=== PATIENT | female | born 1960 | race Two or more races ===

== ENCOUNTER 2025-05-24 09:11 | Emergency (ER) | payer OTHER, MEDICAID ==
[~2025-05-24] VITALS: Ht 167.6 cm; Wt 75.0 kg
--- NOTE | 2025-05-24 09:27 | ED.PDOC ---
SOB-HPI HPI Comments 65 year old female with PMHx COPD presents to the D with a chief compliant of shortness of breath onset today (05/24/25). Patient states she was seen at [facility] about 2 weeks ago, was treated for COPD exacerbation, prescribed prednisone and antibiotics. Patient states she woke up this morning experiencing shortness of breath, is on 1L O2, increased to 1.5 L, walked to the restroom, noticed HR was elevated, called 911. Patient states symptoms are similar as 2 weeks ago. She had breathing treatment prior to EMS arrival, was given breathing treatment by EMS in route to ED. Denies chills, nausea, vomiting, diarrhea, headache, dizziness, chest pain, blurred vision, hematemesis, dysuria, hematuria. No other symptoms or modifying factors present at this time. Chief Complaint: Shortness of Breath Time Seen by MD: 09:20 Reviewed notes: Medications, Allergies Information Source: Patient, Emergency Med Personnel Mode of Arrival: EMS Severity: Moderate Timing: Hours Duration: Since onset Context: At Rest PE Risk Factors: None History of: COPD Prehospital treatment: Breathing Tx, Oxygen Modifying Factors: Nothing Past Medical History PAST MEDICAL HISTORY: COPD Surgical History: Denies all surgeries RHIC SYSTEMS SAFETY ENGINEER History: No Pertinent RHIC SYSTEMS SAFETY ENGINEER History Family History Family History: Reviewed,noncontributory to illness, No family hx of Cancer, No family hx of DM, No family hx of Heart khari, No family hx of HTN, No family hx ofKidney khari, No family hx of Liver khari, No family hx of Lung khari, No family hx of Stroke Social History Smoker: Non-Smoker Alcohol: Denies ETOH Use Drugs: Denies Drug Use Lives In: Home Constitutional: denies: chills, diaphoresis, fatigue, fever, malaise, sweats, weakness, others EENTM: denies: blurred vision, double vision, ear bleeding, ear discharge, ear drainage, ear pain, ear ringing, eye pain, eye redness, hearing loss, mouth pain, mouth swelling, nasal discharge, nose bleeding, nose congestion, nose pain, photophobia, tearing, throat pain, throat swelling, voice changes, others Respiratory: reports: shortness of breath; denies: cough, hemoptysis, orthopnea, SOB at rest, SOB with excertion, stridor, wheezing, others Cardiovascular: denies: chest pain, dizzy spells, diaphoresis, Dyspnea on exertion, edema, irregular heart beat, left arm pain, lightheadedness, palpitations, PND, syncope, others Gastrointestinal: denies: abdomen distended, abdominal pain, blood streaked bowels, constipated, diarrhea, dysphagia, difficulty swallowing, hematemesis, melena, nausea, poor appetite, poor fluid intake, rectal bleeding, rectal pain, vomiting, others Genitourinary: denies: abnormal vagina bleeding, burning, dyspareunia, dysuria, flank pain, frequency, hematuria, incontinence, pain, , vagina discharge, urgency, others Neurological: denies: dizziness, fainting, headache, left sided numbness, left sided weakness, numbness, paresthesia, pre-existing deficit, right sided numbness, right sided weakness, seizure, speech problems, tingling, tremors, weakness, others Musculoskeletal: denies: back pain, gout, joint pain, joint swelling, muscle pain, muscle stiffness, neck pain, others Integumetry: denies: bruises, change in color, change in hair/nails, dryness, laceration, lesions, lumps, rash, wounds, others Allergic/Immunocompromised: denies: Difficulty Healing, Frequent Infections, Hives, Itching, others Hematologic/Lymphatic: denies: anemia, blood clots, easy bleeding, easy bruising, swollen glands, others Endocrine: denies: excessive hunger, excessive sweating, excessive thirst, excessive urination, flushing, intolerance to cold, intolerance to heat, unexplained weight gain, unexplained weight loss, others Psychiatric: denies: anxiety, bipolar disorder, depression, hopeless, panic disorder, schizophrenia, sleepless, suicidal, others All Other Systems: Reviewed and Negative Physical Exam General Appearance: Normal HEENT: Normal ENT Inspection, Pharynx Normal, TMs Normal Neck: Full Range of Motion, Non-Tender, Normal, Normal Inspection Respiratory: Chest Non-Tender, No Accessory Muscle Use Cardiovascular: No Edema, No JVD, No Murmur, No Gallop, Normal Peripheral Pulses, Regular Rate/Rhythm Breast Exam: Deferred Gastrointestinal: No Organomegaly, Non Tender, No Pulsatile Mass, Normal Bowel Sounds, Soft Genitalia: Deferred Pelvic: Deferred Rectal: Deferred Extremities: No calf tenderness, Normal capillary refill, Normal inspection, Normal range of motion, Non-tender, No pedal edema Musculoskeletal : Apperance: Normal Neurologic: Alert, unit coordinator II-XII nml as Tested, No Motor Deficits, Normal Affect, Normal Mood, No Sensory Deficits Cerebellar Function: Normal Reflexes: Normal Skin: Dry, Normal Color, Warm Lymphatic: No Adenopathy Was a procedure done? Was a procedure done?: No Differential Dx Differential Diagnosis: Bronchitis, COPD, Pneumonia, URI X-Ray, Labs, Meds, VS Vital Signs Date Time Temp Pulse Resp B/P (MAP) Pulse Ox O2 Delivery O2 Flow Rate FiO2 05/24/25 13:08 98.3 89 22 152/107 (122) 95 98.3 05/24/25 09:53 20 95 Nasal Cannula* 3 32 05/24/25 09:21 91 Nasal Cannula* 2 28 05/24/25 09:21 99.0 109 26 120/73 91 99.0 05/24/25 09:17 116 Lab Test 05/24/25 10:59 05/24/25 10:19 Range/Units Troponin I High Sensitivity < 3 L < 3 L </=34 ng/L White Blood Count 10.3 4.4-10.8 10^3/uL Red Blood Count 4.65 4.0-5.20 10^6/uL Hemoglobin 14.7 12.2-16.2 g/dL Hematocrit 42.6 36.0-46.0 % Mean Corpuscular Volume 91.7 80.0-100.0 fL Mean Corpuscular Hemoglobin 31.6 28.0-32.0 pg Mean Corpuscular Hemoglobin Concent 34.4 32.0-36.0 g/dL Red Cell Distribution Width 13.3 11.8-14.3 % Platelet Count 282 140-450 10^3/uL Mean Platelet Volume 7.5 6.9-10.8 fL Neutrophils (%) (Auto) 85.8 H 37.0-80.0 % Lymphocytes (%) (Auto) 8.2 L 10.0-50.0 % Monocytes (%) (Auto) 3.9 0.0-12.0 % Eosinophils (%) (Auto) 1.5 0.0-7.0 % Basophils (%) (Auto) 0.6 0.0-2.0 % Neutrophils # (Auto) 8.8 H 1.6-8.6 10 ^3/uL Lymphocytes # (Auto) 0.8 0.4-5.4 10 ^3/uL Monocytes # (Auto) 0.4 0-1.3 10 ^3/uL Eosinophils # (Auto) 0.2 0-0.8 10 ^3/uL Basophils # (Auto) 0.1 0-0.2 10 ^3/uL Nucleated Red Blood Cells 0.0 % Sodium Level 136 136-145 mmol/L Potassium Level 3.8 3.5-5.1 mmol/L Chloride Level 102 98-107 mmol/L Carbon Dioxide Level 21 20-31 mmol/L Anion Gap 13 5-15 Blood Urea Nitrogen 11 9-23 mg/dL Creatinine 0.85 0.550-1.02 mg/dL Glomerular Filtration Rate Calc 77 >90 mL/min BUN/Creatinine Ratio 12.9 10.0-20.0 Serum Glucose 178 H 74-106 mg/dL Calcium Level 9.3 8.7-10.4 mg/dL B-Type Natriuretic Peptide 17.67 0-100 pg/mL Current Medications Medications (Trade) Dose Ordered Sig/Gisele Route Start Time Stop Time Status Last Admin Azithromycin (Zithromax Tablet) 500 mg ONCE ONCE PO 05/24/25 09:30 05/24/25 09:31 DC 05/24/25 10:19 Albuterol (Ventolin Medneb) 5 mg ONCE ONCE NEB 05/24/25 09:30 05/24/25 09:31 DC 05/24/25 09:52 Ipratropium [place] (Atrovent Medneb) 0.5 mg ONCE ONCE NEB 05/24/25 09:30 05/24/25 09:31 DC 05/24/25 09:52 Methylprednisolone Sodium Succinate (Solu Medrol) 62.5 mg ONCE ONCE IV 05/24/25 09:30 05/24/25 09:31 DC 05/24/25 10:[address] [address] Ph: [phone] DIAGNOSTIC IMAGING Diagnostic Imaging Report : [id number] Signed PATIENT: DASIA SIGALA LACCT: [id number] UNIT: [id number] : 1960 LOC: ER ROOM / BED: / AGE / SEX: 65 / F ADM STATUS: REG ER SERVICE 1 ORDERING PHYSICIAN: CEHTNA JACKSON MD PROCEDURE(s): CXRP - CHEST PORTABLE REASON: sob ORDER NUMBER(s): [id number], ACCESSION NUMBER(s): [id number] EXAM: XY CHEST PORTABLE Indication: sob Technique: Single frontal view of the chest was obtained Comparison: None FINDINGS: Lines and Tubes: None Lungs: No focal consolidation. Pleura: No effusion. No pneumothorax. Cardiomediastinal contours: Unremarkable. Atherosclerotic vascular calcifications of the thoracic aorta are noted. Bones: No acute osseous abnormality. IMPRESSION: No acute cardiopulmonary disease. ATED BY: LIZZETTE AMARO MD DICTATED DATE/TIME: 05/24/251004 SIGNED BY: LIZZETTE AMARO MD SIGNED DATE/TIME: 05/24/251004 CC: Time of 1ST Reevaluation: 09:50 Reevaluation 1ST: Unchanged Patient Education/Counseling: Diagnosis, Treatment, Prognosis Family Education/Counseling: No Family Present SEPSIS Sepsis Screen Physician Orders Chest Portable (05/24/25 09:22) Troponin-I Hs (05/24/25 12:22) Vital Signs Date Time Temp Pulse Resp B/P (MAP) Pulse Ox O2 Delivery O2 Flow Rate FiO2 05/24/25 13:08 98.3 89 22 152/107 (122) 95 98.3 05/24/25 09:53 20 95 Nasal Cannula* 3 32 05/24/25 09:21 91 Nasal Cannula* 2 28 05/24/25 09:21 99.0 109 26 120/73 91 99.0 05/24/25 09:17 116 Laboratory Tests Test 05/24/25 10:19 White Blood Count 10.3 10^3/uL (4.4-10.8) Medications Medications Dose Ordered Sig/Gisele Route Start Time Stop Time Status Last Admin Dose Admin Albuterol 5 mg ONCE ONCE NEB 05/24/25 09:30 05/24/25 09:31 DC 05/24/25 09:52 Azithromycin 500 mg ONCE ONCE PO 05/24/25 09:30 05/24/25 09:31 DC 05/24/25 10:19 Ipratropium [place] 0.5 mg ONCE ONCE NEB 05/24/25 09:30 05/24/25 09:31 DC 05/24/25 09:52 Methylprednisolone Sodium Succinate 62.5 mg ONCE ONCE IV 05/24/25 09:30 05/24/25 09:31 DC 05/24/25 10:21 Departure 1 Departure Time of Disposition: 13:11 (Patient likely with a COPD exacerbation. Patient is feeling significantly better. We will discharge patient home with outpatient follow up) Impression: Primary Impression: COPD exacerbation Disposition: HOME / SELF CARE / HOMELESS Condition: Stable Additional Instructions: You likely had a COPD exacerbation. You should use your inhaler as directed. Your prescribed steroids and azithromycin. Please take as directed. It is important to follow up with the regular doctor within 1 week. If your symptoms worsen or you have any other concerns please return to the emergency room. e-Prescriptions Prednisone (Prednisone) 20 Mg Tab 40 MG PO DAILY for 5 Days, #10 MG Prov: CHETNA JCAKSON MD 05/24/25 Azithromycin (ZITHROMAX TABLET) 250 Mg Tb 250 MG PO DAILY for 5 Days, #5 TAB Prov: CHETNA JACKSON MD 05/24/25 Discharged With: Self Critical Care Note Critical Care Time?: No Stability Stability form required: No Heart Score Heart Score: Heart Score Response (Comments) Value History N/A 0 EKG N/A 0 Age N/A 0 Risk Factors N/A 0 Troponin N/A 0 Total 0 I personally scribed for CHETNA JACKSON MD ([email or web address]) on 05/24/25 at 09:27. Electronically submitted by Gloria Rahman ([email or web address]). I personally scribed for CHETNA JACKSON MD ([email or web address]) on 05/24/25 at 10:14. Electronically submitted by Gloria Rahman ([email or web address]). CHETNA JACKSON MD May 24, 2025 09:27
[2025-05-24] MEDS: IPRATROPIUM BROM 0.5 MG/2.5ML INH SOL NEB ONE (09:52)
[2025-05-24] MEDS: ALBUTEROL SULF 2.5 MG/0.5ML(0.5%) NEB SOLN NEB ONE (09:52)
--- NOTE | 2025-05-24 10:08 | DVH ---
EXAM: XY CHEST PORTABLE Indication: sob Technique: Single frontal view of the chest was obtained Comparison: None FINDINGS: Lines and Tubes: None Lungs: No focal consolidation. Pleura: No effusion. No pneumothorax. Cardiomediastinal contours: Unremarkable. Atherosclerotic vascular calcifications of the thoracic ao rta are noted. Bones: No acute osseous abnormality. IMPRESSION: No acute cardiopulmonary disease.
[2025-05-24] MEDS: AZITHROMYCIN 250 MG TAB PO ONE (10:19)
[2025-05-24] MEDS: methylPREDNISolone SOD SUCC 125 MG/2 ML VL IV ONE (10:21)
--- NOTE | 2025-05-24 10:27 | ECG ---
[facility] Test Date: 2025-05-24 Test Time: 09:17:01 Pat Name: DASIA SIGALA Department: [facility] ED Patient ID: [facility]-[id number] Room: Gender: F Pond Sawyer: MAY : 1960 Requested By: CHETNA JACKSON Order Number: [id number] Reading MD: Measurements Intervals [place] Rate: 116 P: -3 LA: 121 QRS: 6 QRSD: 55 T: 189 QT: 407 QTc: 566 Interpretive Statements Sinus tachycardia Nonspecific repol abnormality, diffuse leads Minimal ST elevation, inferior leads Prolonged QT interval Baseline wander in lead(s) V3 Please click the below link to view image of tracing.
[2025-05-24 10:41] LABS: Hematocrit 42.6 % (36.0-46.0); Hemoglobin 14.7 g/dL (12.2-16.2); Mean Corpuscular Hemoglobin 31.6 pg (28.0-32.0); Mean Corpuscular Volume 91.7 fL (80.0-100.0); Nucleated Red Blood Cells % 0.0 %
[2025-05-24 11:14] LABS: Anion Gap 13 (5-15); Chloride 102 mmol/L (98-107); Potassium 3.8 mmol/L (3.5-5.1); Sodium 136 mmol/L (136-145)
[2025-05-24 11:15] LABS: Calcium 9.3 mg/dL (8.7-10.4); Carbon Dioxide 21 mmol/L (20-31)
[2025-05-24 11:18] LABS: Blood Urea Nitrogen 11 mg/dL (9-23)
[2025-05-24 11:19] LABS: BUN/Creatinine Ratio 12.9 (10.0-20.0)
[2025-05-24 11:20] LABS: Glucose 178 mg/dL (74-106)
[2025-05-24 13:08] VITALS: BP 152/107; PULSE 89; RESP 22; TEMP 98.3; O2SAT 95
[2025-05-24] MEDS ORDERED: AZIT-185 PO (13:12)
[2025-05-24] MEDS ORDERED: PRED20TA2 PO (13:12)
== END 2025-05-24 13:54 | disposition home or self-care (01) ==
LOC: ER 09:11 → EDBD 09:11 → ER 13:54
DX: J44.1 Chronic obstructive pulmonary disease with (acute) exacerbation (principal)
CPT/HCPCS: 36415; 71045; 80048; 82947; 83880; 84484; 85025; 93005; 94640; 96374; 99285; J2919

== ENCOUNTER 2025-06-22 08:06 | Inpatient (IN) | payer OTHER, MEDICAID ==
[~2025-06-22] VITALS: Ht 165.1 cm; Wt 75.0 kg
[~2025-06-22 08:06] MED LIST: AZIT-185 PO; PRED20TA2 PO
--- NOTE | 2025-06-22 08:26 | ECG ---
[facility] Test Date: 2025-06-22 Test Time: 08:11:11 Pat Name: DASIA SIGALA Department: ED Room: [address] [place] [address] Gender: F [employer] Business Segment Leader: VICTOR MANUEL : 1960 Requested By: CARLOS ARSHAD Order Number: [id number] Reading MD: Logan Alvarez Measurements Intervals [place] Rate: 123 P: 75 OR: 165 QRS: 69 QRSD: 55 T: 72 QT: 319 QTc: 457 Interpretive Statements Sinus tachycardia Low voltage, precordial leads Borderline repol abnormality, diffuse leads Electronically Signed On 06-22-2025 18:01:56 PST by Logan Alvarez Please click the below link to view image of tracing.
[2025-06-22 08:31] VITALS: PULSE 120; RESP 24; O2SAT 100
--- NOTE | 2025-06-22 08:48 | ED.PDOC ---
SOB-HPI HPI Comments 65-year-old female with PMHx COPD, presents to the ED via EMS with a chief complaint of shortness of breath onset 3 days. Patient states she has been experiencing shortness of breath as well as productive cough with thick brown phlegm for the past 3 days. Patient was hospitalized on 04/25/2025 at [facility] due to COPD exacerbation, was admitted for 3 days. Upon EMS arrival O2 saturation was 86% on RA, is usually on 2 L O2 at home. She was given breathing treatment in route to ED by EMS, placed on a NRB. Upon ED arrival patient was tachycardic, febrile. Denies dizziness, headache, chest pain, nausea, vomiting, diarrhea, abdominal pain, blurry vision, numbness/tingling, dysuria, hematuria. No other symptoms or modifying factors present at this time. Chief Complaint: Shortness of Breath Time Seen by MD: 08:40 Reviewed notes: Medications, Allergies Information Source: Patient, Emergency Med Personnel Mode of Arrival: EMS Severity: Moderate Timing: Days Duration: Since onset Context: At Rest PE Risk Factors: None History of: COPD Prehospital treatment: Breathing Tx, Oxygen Modifying Factors: Nothing Associated Signs and Symptoms: Cough If cough with SOB: Productive, Brown Past Medical History PAST MEDICAL HISTORY: COPD Surgical History: Appendectomy, Hysterectomy, Tonsillectomy Surgical History (Other): LT great toe amputation BANKING SERVICES CLERK History: No Pertinent BANKING SERVICES CLERK History Family History Family History: Family hx of lung khari Social History Smoker: Quit Less Than 1 Year, Cigarettes Alcohol: Denies ETOH Use Drugs: Denies Drug Use Lives In: Home Constitutional: reports: fever; denies: chills, diaphoresis, fatigue, malaise, sweats, weakness, others EENTM: denies: blurred vision, double vision, ear bleeding, ear discharge, ear drainage, ear pain, ear ringing, eye pain, eye redness, hearing loss, mouth pain, mouth swelling, nasal discharge, nose bleeding, nose congestion, nose pain, photophobia, tearing, throat pain, throat swelling, voice changes, others Respiratory: reports: cough, shortness of breath; denies: hemoptysis, orthopnea, SOB at rest, SOB with excertion, stridor, wheezing, others Cardiovascular: denies: chest pain, dizzy spells, diaphoresis, Dyspnea on exertion, edema, irregular heart beat, left arm pain, lightheadedness, palpitations, PND, syncope, others Gastrointestinal: denies: abdomen distended, abdominal pain, blood streaked bowels, constipated, diarrhea, dysphagia, difficulty swallowing, hematemesis, melena, nausea, poor appetite, poor fluid intake, rectal bleeding, rectal pain, vomiting, others Genitourinary: denies: abnormal vagina bleeding, burning, dyspareunia, dysuria, flank pain, frequency, hematuria, incontinence, pain, , vagina discharge, urgency, others Neurological: denies: dizziness, fainting, headache, left sided numbness, left sided weakness, numbness, paresthesia, pre-existing deficit, right sided numbness, right sided weakness, seizure, speech problems, tingling, tremors, weakness, others Musculoskeletal: denies: back pain, gout, joint pain, joint swelling, muscle pain, muscle stiffness, neck pain, others Integumetry: denies: bruises, change in color, change in hair/nails, dryness, laceration, lesions, lumps, rash, wounds, others Allergic/Immunocompromised: denies: Difficulty Healing, Frequent Infections, Hives, Itching, others Hematologic/Lymphatic: denies: anemia, blood clots, easy bleeding, easy bruising, swollen glands, others Endocrine: denies: excessive hunger, excessive sweating, excessive thirst, excessive urination, flushing, intolerance to cold, intolerance to heat, unexplained weight gain, unexplained weight loss, others Psychiatric: denies: anxiety, bipolar disorder, depression, hopeless, panic disorder, schizophrenia, sleepless, suicidal, others All Other Systems: Reviewed and Negative Physical Exam General Appearance: Moderate Distress HEENT: Normal ENT Inspection, Pharynx Normal, TMs Normal Neck: Full Range of Motion, Non-Tender, Normal, Normal Inspection Respiratory: Decreased Breath Sounds, Respiratory Distress, Wheezing Cardiovascular: No Edema, No JVD, No Murmur, No Gallop, Tachycardia Breast Exam: Deferred Gastrointestinal: No Organomegaly, Non Tender, No Pulsatile Mass, Normal Bowel Sounds, Soft Genitalia: Deferred Pelvic: Deferred Rectal: Deferred Extremities: No calf tenderness, Normal capillary refill, No pedal edema Musculoskeletal : Apperance: Normal Neurologic: Alert, vending service technician II-XII nml as Tested, Motor Weakness, Normal Affect, Normal Mood, No Sensory Deficits Cerebellar Function: Normal Reflexes: Normal Skin: Dry, Normal Color, Warm Lymphatic: No Adenopathy EKG EKG : Pulse Rate (adult): 123 Cardiac Rhythm: ST Block: None ST: Nonsp Was a procedure done? Was a procedure done?: No Differential Dx Differential Diagnosis: Anxiety, Asthma, Bronchitis, COPD, Pneumonia X-Ray, Labs, Meds, VS Vital Signs Date Time Temp Pulse Resp B/P (MAP) Pulse Ox O2 Delivery O2 Flow Rate FiO2 06/22/25 10:09 101.0 06/22/25 09:03 100 Nasal Cannula* 4 36 06/22/25 09:03 25 96 Nasal Cannula* 4 36 06/22/25 08:52 101.1 06/22/25 08:48 123 06/22/25 08:31 120 24 100 Nasal Cannula* 4 36 06/22/25 08:31 101.1 120 24 122/74 (90) 100 101.1 06/22/25 08:11 123 06/22/25 08:06 101.2 128 32 124/79 92 101.2 Lab Test 06/22/25 09:38 06/22/25 08:53 06/22/25 08:49 06/22/25 08:34 Range/Units Influenza Type A Antigen Pending Influenza Type B Antigen Pending SARS-CoV-2 Antigen (Rapid) Pending White Blood Count Pending Red Blood Count Pending Hemoglobin Pending Hematocrit Pending Mean Corpuscular Volume Pending Mean Corpuscular Hemoglobin Pending Mean Corpuscular Hemoglobin Concent Pending Red Cell Distribution Width Pending Platelet Count Pending Mean Platelet Volume Pending Neutrophils (%) (Auto) Pending Lymphocytes (%) (Auto) Pending Monocytes (%) (Auto) Pending Basophils (%) (Auto) Pending Neutrophils # (Auto) Pending Lymphocytes # (Auto) Pending Monocytes # (Auto) Pending Sodium Level 136 136-145 mmol/L Potassium Level 4.0 3.5-5.1 mmol/L Chloride Level 99 98-107 mmol/L Carbon Dioxide Level 27 20-31 mmol/L Anion Gap 10 5-15 Blood Urea Nitrogen 13 9-23 mg/dL Creatinine 0.88 0.550-1.02 mg/dL Glomerular Filtration Rate Calc 74 >90 mL/min BUN/Creatinine Ratio 14.8 10.0-20.0 Serum Glucose 189 H 74-106 mg/dL Lactic Acid Level 2.0 0.4-2.0 mmol/L Calcium Level 9.9 8.7-10.4 mg/dL Total Bilirubin 0.5 0.2-1.0 mg/dL Aspartate Amino Transferase (AST) 15 13-40 U/L Alanine Aminotransferase (ALT) 16 7-40 U/L Alkaline Phosphatase 101 46-116 U/L B-Type Natriuretic Peptide 11.21 0-100 pg/mL Total Protein 7.9 5.7-8.2 g/dL Albumin 4.8 3.2-4.8 g/dL Urine Color Light-yellow Yellow Urine Clarity Clear Clear Urine pH 5.0 5.0-9.0 Urine Specific [place] 1.019 1.001-1.035 Urine Protein Negative Negative Urine Ketones Trace Negative Urine Blood Negative Negative /uL Urine Nitrite Negative Negative Urine Bilirubin Negative Negative Urine Urobilinogen Normal Negative mg/dL Urine Leukocyte Esterase Negative Negative /uL Urine RBC None seen 0 - 4 /hpf Urine Microscopic WBC 1 0-5 /HPF Urine Squamous Epithelial Cells Few <5 /hpf Urine Bacteria None seen None Seen /hpf Urine Glucose 3+ H Normal mg/dL POC Glucose 208 H 70-106 mg/dl Current Medications Medications (Trade) Dose Ordered Sig/Gisele Route Start Time Stop Time Status Last Admin Acetaminophen (Tylenol Tablet Or Capsule) 1,000 mg ONCE ONCE PO 06/22/25 08:45 06/22/25 08:46 DC 06/22/25 08:52 Methylprednisolone Sodium Succinate (Solu Medrol) 125 mg ONCE ONCE IV 06/22/25 08:45 06/22/25 08:46 DC 06/22/25 08:52 Ipratropium [place] (Atrovent Medneb) 1 mg ONCE ONCE N 06/22/25 08:45 06/22/25 08:46 DC 06/22/25 08:59 Albuterol (Ventolin Medneb) 20 mg ONCE ONCE N 06/22/25 08:45 06/22/25 08:46 DC 06/22/25 09:00 Vancomycin HCl 250 ml @ 250 mls/hr ONCE ONCE IV 06/22/25 10:15 06/22/25 11:14 06/22/25 10:13 IMPRESSION: Pulmonary 1. Pulmonary vascular congestion. The patient was given a breathing treatment upon arrival. The patient was given Solu-Medrol 125 mg IV push For the fever, the patient was given acetaminophen 1 g IV piggyback. At this time, the patient has a urine test which is negative for any infection The chemistry panel is within normal limits. After the breathing treatment, the patient is still on 4 L nasal cannula and typically on 2 L nasal cannula She is only saturating at 93%. The patient continues to have wheezing. The patient is a [facility] patient is so we did contact them and they did give us authorization for admission secondary to the continuous hypoxia. The authorization #[id number] The patient is being admitted at this time. Images Reviewed?: Images reviewed and evaluated by me Time of 1ST Reevaluation: 09:10 Reevaluation 1ST: Unchanged Patient Education/Counseling: Diagnosis, Treatment, Prognosis Family Education/Counseling: No Family Present SEPSIS Sepsis Screen Physician Orders Complete Blood Count (06/22/25 08:23) Blood Culture (06/22/25 08:23) Med Neb Initial Treatment (06/22/25 08:42) Chest Portable (06/22/25 08:42) Heplock Iv (06/22/25 08:42) Pulse Oximetry (06/22/25 08:42) Oxygen (06/22/25 08:42) Rim Fire Charger Operator (06/22/25 08:42) Blood Pressure (06/22/25 08:42) Covid19 Antigen Jazmyn (06/22/25 ) Rapid Influenza A&B (06/22/25 08:42) Vancomycin 1gm/250ml Kit (06/22/25 10:15) Levofloxacin 500mg (Levaquin 500mg/ 100m (06/22/25 10:15) Vital Signs Date Time Temp Pulse Resp B/P (MAP) Pulse Ox O2 Delivery O2 Flow Rate FiO2 06/22/25 10:09 101.0 06/22/25 09:03 100 Nasal Cannula* 4 36 06/22/25 09:03 25 96 Nasal Cannula* 4 36 06/22/25 08:52 101.1 06/22/25 08:48 123 06/22/25 08:31 120 24 100 Nasal Cannula* 4 36 06/22/25 08:31 101.1 120 24 122/74 (90) 100 101.1 06/22/25 08:11 123 06/22/25 08:06 101.2 128 32 124/79 92 101.2 Laboratory Tests Test 06/22/25 08:53 Lactic Acid Level 2.0 mmol/L (0.4-2.0) White Blood Count Pending Medications Medications Dose Ordered Sig/Gisele Route Start Time Stop Time Status Last Admin Dose Admin Acetaminophen 1,000 mg ONCE ONCE PO 06/22/25 08:45 06/22/25 08:46 DC 06/22/25 08:52 Albuterol 20 mg ONCE ONCE HHN 06/22/25 08:45 06/22/25 08:46 DC 06/22/25 09:00 Ipratropium [place] 1 mg ONCE ONCE N 06/22/25 08:45 06/22/25 08:46 DC 06/22/25 08:59 Methylprednisolone Sodium Succinate 125 mg ONCE ONCE IV 06/22/25 08:45 06/22/25 08:46 DC 06/22/25 08:52 Vancomycin HCl 250 ml @ 250 mls/hr ONCE ONCE IV 06/22/25 10:15 06/22/25 11:14 06/22/25 10:13 Departure 1 Departure Time of Disposition: 10:21 Impression: Primary Impression: Acute respiratory failure Qualified Codes: J96.01 - Acute respiratory failure with hypoxia Additional Impression: COPD exacerbation Disposition: ADMITTED INPATIENT Admit to: Tele Condition: Fair Critical Care Note Critical Care Time?: Yes (45 min-critical care time only) Stability Stability form required: Yes Unstable for transfer: ICU, CCU, PCU, SHIVAM (Intensive VS monitoring), May require CPR (possible rapid decline), ED Physician Assesment (Clinical assesment) Heart Score Heart Score: Heart Score Response (Comments) Value History N/A 0 EKG N/A 0 Age N/A 0 Risk Factors N/A 0 Troponin N/A 0 Total 0 I personally scribed for CARLOS ARSHAD MD ([email or web address]) on 06/22/25 at 08:48. Electronically submitted by Gloria Rahman ([email or web address]). I personally scribed for CARLOS ARSHAD MD ([email or web address]) on 06/22/25 at 09:27. Electronically submitted by Gloria Rahman ([email or web address]). CARLOS ARSHAD MD Jun 22, 2025 08:48
[2025-06-22] MEDS: methylPREDNISolone SOD SUCC 125 MG/2 ML VL IV ONE (08:52)
[2025-06-22] MEDS: ACETAMINOPHEN 500 MG TAB or CAP PO ONE (08:52)
[2025-06-22 08:57] LABS: Urine Protein, UAD Negative (Negative)
[2025-06-22] MEDS: IPRATROPIUM BROM 0.5 MG/2.5ML INH SOL HHN ONE ×2 (08:59→13:26)
[2025-06-22] MEDS: ALBUTEROL SULF 2.5 MG/0.5ML(0.5%) NEB SOLN HHN ONE ×2 (09:00→13:26)
--- NOTE | 2025-06-22 09:16 | DVH ---
CHEST RADIOGRAPH Indication: Shortness of breath. Technique: Single frontal view of the chest was obtained Comparison: XY CHEST PORTABLE on DOS: 05/24/25. FINDINGS: Lines and Tubes: None Lungs: Bilateral increased interstitial prominence. No focal consolidation. Pleura: No effusion. No pneumothorax. Cardiomediastinal contours: Unremarkable Bones: No acute osseous abnormality. IMPRESSION: Pulmonary 1. Pulmonary vascular congestion.
[2025-06-22 09:46] LABS: Alanine Aminotransferase 16 U/L (7-40); Albumin 4.8 g/dL (3.2-4.8); Alkaline Phosphatase 101 U/L (46-116); Anion Gap 10 (5-15); BUN/Creatinine Ratio 14.8 (10.0-20.0); Blood Urea Nitrogen 13 mg/dL (9-23); Calcium 9.9 mg/dL (8.7-10.4); Carbon Dioxide 27 mmol/L (20-31); Chloride 99 mmol/L (98-107); Potassium 4.0 mmol/L (3.5-5.1); Sodium 136 mmol/L (136-145); Total Protein 7.9 g/dL (5.7-8.2)
[2025-06-22 09:47] LABS: Bilirubin, Total 0.5 mg/dL (0.2-1.0)
[2025-06-22 09:54] LABS: Glucose 189 mg/dL (74-106)
[2025-06-22] MEDS: VANCOMYCIN 1GM/250ML KIT 250 ML IV ONE (10:13)
[2025-06-22 11:00] LABS: Hematocrit 38.1 % (36.0-46.0); Hemoglobin 12.9 g/dL (12.2-16.2); Mean Corpuscular Hemoglobin 30.7 pg (28.0-32.0); Mean Corpuscular Volume 90.9 fL (80.0-100.0); Nucleated Red Blood Cells % 0.0 %
[2025-06-22 11:04] LABS: COVID19 ANTIGEN SOFIA FIA NEGATIVE (NEGATIVE)
[2025-06-22 13:30] VITALS: BP 122/74; PULSE 101; RESP 23; TEMP 101; O2SAT 96
[2025-06-22] MEDS ORDERED: VANCOMYCIN PER PHARMACY 0 MG IV SCH (13:30)
[2025-06-22] MEDS ORDERED: ACETAMINOPHEN 325 MG TAB PO PRN (13:30)
--- NOTE | 2025-06-22 15:59 | DVHHPRES ---
History of Present Illness Resident Creating Document: CYNDIE PANIAGUASADIA RESIDENT History of Present Illness Patient is a 65-year-old female with a medical history of COPD, sarcoidosis presented to the hospital for complaint of worsening shortness of breath for the last 2 days. 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 This episode started on Saturday and patient has had fever, chills, brownish phlegm, dyspnea Functional Class III - IV, also reports of orthopnea and has recently not been able to sleep flat in her bed. Denied any recent sick contacts. On arrival to the ER patient was seen to be tachycardic, had fever up to 101.4 deg ree F, elevated WBC count with left shift. Past medical history: COPD, sarcoidosis Past surgical history: Appendectomy, tonsillectomy, hysterectomy Social history: Patient quit smoking about 4 5 months ago, 40 pack year smoking history, denies alcohol or any other drug use Family history: Noncontributory Home medications: Inhaler Dulera twice daily, Spiriva once daily, nebulizer Review of Systems Review of Systems Patient reports of weakness, continues to have shortness of breath but improved since she has been in the hospital Denies any chest pain Feels feverish and has sweating Reports to be feeling anxious Denies dysuria Allergies: Coded Allergies: Miconazole (Verified Allergy, Unknown, 05/24/25) Penicillins (Verified Allergy, Unknown, 05/24/25) Medications Current Medications Medications Dose Ordered Sig/Gisele Route Start Time Stop Time Status Last Admin Dose Admin Vancomycin HCl 0 ml @ 0 mls/hr PER PHARMACY IV 06/22/25 13:30 Ceftriaxone Sodium 50 ml @ 100 mls/hr DAILY@ IV 06/23/25 09:00 Future Hold Azithromycin 500 mg DAILY PO 06/23/25 10:00 Acetaminophen 650 mg Q6HP PRN PO 06/22/25 13:30 Ipratropium [place] 0.5 mg Q6HR NEB 06/22/25 18:00 Levalbuterol HCl 0.625 mg Q6HR NEB 06/22/25 18:00 Vancomycin HCl 100 ml @ 100 mls/hr Q12HR IV 06/22/25 22:00 Exam Vital Signs Vital Signs Date Time Temp Pulse Resp B/P (MAP) Pulse Ox O2 Delivery O2 Flow Rate FiO2 06/22/25 14:00 119 18 123/69 (87) 93 06/22/25 13:30 101.0 4.0 36 101.0 06/22/25 13:26 Nasal Cannula* Exam Gen - no pallor, no icterus, no cyanosis, no extremity edema Skin - Patients skin is warm and dry. HEENT - normocephalic, atraumatic, moist mucous membranes. Neck - full ROM, no LAD, JVP seen up to the mid SCM Pulmonary - B/L decreased breath sounds with diffuse expiratory wheezing, minimal crackles on right lower side cardiovascular - regular S1,S2 heard, no added sounds, no murmurs heard. peripheral pulses normal radial 2+, pedal 2+. capillary refill normal <3 secs. GI - soft, nontender abdomen. no hepatospleenomegaly. Bowel sounds normoactive Neurological - Patient is A/O X 4 . Bilateral upper extremity strength 5/5, bilateral lower extremity strength 5/5, no facial droop, normal speech, no tremor, no sensory deficiets. Labs/Xrays Labs Test 06/22/25 10:25 06/22/25 09:38 06/22/25 08:53 06/22/25 08:49 Range/Units White Blood Count 12.1 H 4.4-10.8 10^3/uL Red Blood Count 4.20 4.0-5.20 10^6/uL Hemoglobin 12.9 12.2-16.2 g/dL Hematocrit 38.1 36.0-46.0 % Mean Corpuscular Volume 90.9 80.0-100.0 fL Mean Corpuscular Hemoglobin 30.7 28.0-32.0 pg Mean Corpuscular Hemoglobin Concent 33.8 32.0-36.0 g/dL Red Cell Distribution Width 13.2 11.8-14.3 % Platelet Count 298 140-450 10^3/uL Mean Platelet Volume 7.4 6.9-10.8 fL Neutrophils (%) (Auto) 94.5 H 37.0-80.0 % Lymphocytes (%) (Auto) 3.0 L 10.0-50.0 % Monocytes (%) (Auto) 1.9 0.0-12.0 % Eosinophils (%) (Auto) 0.4 0.0-7.0 % Basophils (%) (Auto) 0.2 0.0-2.0 % Neutrophils # (Auto) 11.4 H 1.6-8.6 10 ^3/uL Lymphocytes # (Auto) 0.4 0.4-5.4 10 ^3/uL Monocytes # (Auto) 0.2 0-1.3 10 ^3/uL Eosinophils # (Auto) 0.1 0-0.8 10 ^3/uL Basophils # (Auto) 0 0-0.2 10 ^3/uL Nucleated Red Blood Cells 0.0 % Influenza Type A Antigen Negative Negative Influenza Type B Antigen Negative Negative SARS-CoV-2 Antigen (Rapid) Negative NEGATIVE Sodium Level 136 136-145 mmol/L Potassium Level 4.0 3.5-5.1 mmol/L Chloride Level 99 98-107 mmol/L Carbon Dioxide Level 27 20-31 mmol/L Anion Gap 10 5-15 Blood Urea Nitrogen 13 9-23 mg/dL Creatinine 0.88 0.550-1.02 mg/dL Glomerular Filtration Rate Calc 74 >90 mL/min BUN/Creatinine Ratio 14.8 10.0-20.0 Serum Glucose 189 H 74-106 mg/dL Lactic Acid Level 2.0 0.4-2.0 mmol/L Calcium Level 9.9 8.7-10.4 mg/dL Total Bilirubin 0.5 0.2-1.0 mg/dL Aspartate Amino Transferase (AST) 15 13-40 U/L Alanine Aminotransferase (ALT) 16 7-40 U/L Alkaline Phosphatase 101 46-116 U/L B-Type Natriuretic Peptide 11.21 0-100 pg/mL Total Protein 7.9 5.7-8.2 g/dL Albumin 4.8 3.2-4.8 g/dL Urine Color Light-yellow Yellow Urine Clarity Clear Clear Urine pH 5.0 5.0-9.0 Urine Specific [place] 1.019 1.001-1.035 Urine Protein Negative Negative Urine Ketones Trace Negative Urine Blood Negative Negative /uL Urine Nitrite Negative Negative Urine Bilirubin Negative Negative Urine Urobilinogen Normal Negative mg/dL Urine Leukocyte Esterase Negative Negative /uL Urine RBC None seen 0 - 4 /hpf Urine Microscopic WBC 1 0-5 /HPF Urine Squamous Epithelial Cells Few <5 /hpf Urine Bacteria None seen None Seen /hpf Urine Glucose 3+ H Normal mg/dL Test 06/22/25 08:34 Range/Units POC Glucose 208 H 70-106 mg/dl SEPSIS Sepsis Screen Date sepsis recognized/suspect: Jun 22, 2025 Time Sepsis recognized/suspect: 805 Recent Procedure: No On Antibiotic Therapy: No Respiratory Rate >20: Yes Heart Rate >90: Yes Temp<36 C (96.8 F) or >38.3 C: No SBP <90 or MAP <65 mmHG: No New Acute Mental Status Change: No Is the patient on CPAP, BIPAP,: No Physician Orders Blood Culture (06/22/25 08:23) Med Neb Initial Treatment (06/22/25 08:42) Chest Portable (06/22/25 08:42) Heplock Iv (06/22/25 08:42) Pulse Oximetry (06/22/25 08:42) Oxygen (06/22/25 08:42) Radio Division Lieutenant (06/22/25 08:42) Blood Pressure (06/22/25 08:42) Med Neb Initial Treatment (06/22/25 13:16) Admit (06/22/25 13:22) Oxygen By Nasal Cannula (06/22/25 13:22) Stat Ekg For Chest Pain (06/22/25 13:22) Notify Md Of Changes From Base (06/22/25 13:22) Sorter Lumber Straightener For 24 Hours (06/22/25 13:22) Emergency Dysrhythmia Protocol (06/22/25 13:22) Respiratory Culture W/ Gs (06/22/25 13:22) Complete Blood Count (06/23/25 04:00) Basic Metabolic Panel (06/23/25 04:00) Vancomycin Per Pharmacy (06/22/25 13:30) Ceftriaxone 1gm/50ml (Rocephin) (06/23/25 09:00) Azithromycin Tablet (Zithromax Tablet) (06/23/25 10:00) Acetaminophen Tablet (Tylenol Tablet) (06/22/25 13:30) Ipratropium Medneb (Atrovent Medneb) (06/22/25 18:00) Levalbuterol Hcl (Xopenex Medneb) (06/22/25 18:00) Vancomycin 750mg Kit (Vancomycin Hcl) (06/22/25 22:00) Vancomycin,Trough (06/23/25 21:00) Vancomycin Per Pharmacy Protoc (06/23/25 22:00) Levofloxacin Levaquin (06/23/25 10:00) Acetylcysteine Inhalation 20% (Mucomyst (06/22/25 18:00) Hemoglobin A1c (06/22/25 15:11) Echo 2d Mode Cardiac Dop (06/22/25 15:11) Chest Without Contrast (06/22/25 15:11) Lactic Acid W/ Reflex Order (06/22/25 15:11) Abg W/ Co-Ox (06/22/25 15:11) Vital Signs Date Time Temp Pulse Resp B/P (MAP) Pulse Ox O2 Delivery O2 Flow Rate FiO2 06/22/25 14:00 119 18 123/69 (87) 93 06/22/25 13:30 101.0 101 23 122/74 96 4.0 36 101.0 06/22/25 13:26 23 96 Nasal Cannula* 4 36 06/22/25 12:00 96 06/22/25 12:00 98.8 92 20 102/50 (67) 95 98.8 06/22/25 10:09 101.0 06/22/25 10:00 115 20 113/63 (80) 93 06/22/25 09:03 100 Nasal Cannula* 4 36 06/22/25 09:03 25 96 Nasal Cannula* 4 36 06/22/25 08:52 101.1 06/22/25 08:48 123 06/22/25 08:31 120 24 100 Nasal Cannula* 4 36 06/22/25 08:31 101.1 120 24 122/74 (90) 100 101.1 06/22/25 08:11 123 06/22/25 08:06 101.2 128 32 124/79 92 101.2 Laboratory Tests Test 06/22/25 08:53 06/22/25 10:25 Lactic Acid Level 2.0 mmol/L (0.4-2.0) White Blood Count 12.1 10^3/uL (4.4-10.8) H Medications Medications Dose Ordered Sig/Gisele Route Start Time Stop Time Status Last Admin Dose Admin Acetaminophen 1,000 mg ONCE ONCE PO 06/22/25 08:45 06/22/25 08:46 DC 06/22/25 08:52 1,000 MG Albuterol 10 mg ONCE ONCE N 06/22/25 13:30 06/22/25 13:31 DC 06/22/25 13:26 10 MG Albuterol 20 mg ONCE ONCE N 06/22/25 08:45 06/22/25 08:46 DC 06/22/25 09:00 20 MG Ipratropium [place] 0.5 mg ONCE ONCE [facility] 06/22/25 13:30 06/22/25 13:31 DC 06/22/25 13:26 0.5 MG Ipratropium [place] 1 mg ONCE ONCE N 06/22/25 08:45 06/22/25 08:46 DC 06/22/25 08:59 1 MG Levofloxacin/ Dextrose 100 ml @ 100 mls/hr ONCE ONCE IV 06/22/25 10:15 06/22/25 11:14 DC 06/22/25 11:48 100 MLS/HR Methylprednisolone Sodium Succinate 125 mg ONCE ONCE IV 06/22/25 08:45 06/22/25 08:46 DC 06/22/25 08:52 125 MG Vancomycin HCl 250 ml @ 250 mls/hr ONCE ONCE IV 06/22/25 10:15 06/22/25 11:14 DC 06/22/25 10:13 250 MLS/HR Assessment/Plan Assessment/Plan Acute on chronic hypoxic respiratory failure COPD exacerbation likely due to pneumonia Pneumonia likely due to Gram+/- bacteria Sepsis likely due to pneumonia H/o sarcoidosis - chest x-ray showed increased congestion, right lower opacification - chest CT ordered - POCUS- IVC> 2.1 cm and more than 50% collapsibility, lactate normal judicious fluid 500 mL bolus since the patient continues to be tachycardic and has fever - IV antibiotics vancomycin and levofloxacin - Solu-Medrol - duo nebs, Mucomyst q.6 hours - blood and sputum cultures pending - COVID and influenza negative Possible congestive heart failure - echocardiogram pending - ECG showed sinus tachycardia PUD prophylaxis: Protonix DVT prophylaxis: Enoxaparin Goals of care discussed with the patient for over 22 minutes Code status: Full code Time spent: 41 minutes Plan discussed with Dr. Alcala Plan discussed with: Patient, Other (RN Robbin) My Orders Orders - MELANIE PANIAGUA RESIDENT Procedure Category Date Status Time Admit ADMIT 06/22/25 Transmitted 13:22 Oxygen By Nasal RT 06/22/25 Transmitted Cannula 13:22 Stat Ekg For Chest [facility] 06/22/25 In Process Pain 13:22 Notify Of Changes [facility] 06/22/25 In Process From Base 13:22 Sorter Lumber Straightener For [facility] 06/22/25 In Process 24 Hours 13:22 Emergency Dysrhythmia [facility] 06/22/25 In Process Protocol 13:22 Respiratory Culture JOHANN 06/22/25 Logged W/ Gs 13:22 Complete Blood Count LAB 06/23/25 Verified 04:00 Basic Metabolic Panel LAB 06/23/25 Verified 04:00 Vancomycin Per PHA 06/22/25 In Process Pharmacy 13:30 Ceftriaxone 1gm/50ml PHA 06/23/25 In Process (Rocephin) 09:00 Azithromycin Tablet PHA 06/23/25 In Process (Zithromax Tablet) 10:00 Acetaminophen Tablet PHA 06/22/25 In Process (Tylenol Tablet) 13:30 Ipratropium Medneb PHA 06/22/25 In Process (Atrovent Medneb) 18:00 Levalbuterol Hcl PHA 06/22/25 In Process (Xopenex Medneb) 18:00 Vancomycin 750mg Kit PHA 06/22/25 In Process (Vancomycin Hcl) 22:00 Vancomycin,Trough LAB 06/23/25 Verified 21:00 Vancomycin Per JACQUES 06/23/25 In Process Pharmacy Protoc 22:00 Levofloxacin Levaquin PHA 06/23/25 Transmitted 10:00 Acetylcysteine PHA 06/22/25 Transmitted Inhalation 20% 18:00 Hemoglobin A1c LAB 06/22/25 Transmitted 15:11 Echo 2d Mode Cardiac US 06/22/25 Verified DOP 15:[address] 06/22/25 Verified 15:11 Lactic Acid W/ Reflex LAB 06/22/25 Verified Order 15:11 Abg W/ Co-Ox RT 06/22/25 Verified 15:11 Date of Service: Jun 22, 2025 Billing Provider: GABRIELE ALCALA MD Common Visit Codes: [id number] INP/OBS CARE (HIGH) Secondary Visit Codes: [id number] CARE PLAN 30 MINUTES MELANIE PANIAGUA Jun 22, 2025 15:59 GABRIELE ALCALA MD Jun 22, 2025 19:37
[2025-06-22 16:03] LABS: Base Excess -5.2 mmol/L (-2.0-3.0)
[2025-06-22] MEDS: SODIUM CHLORIDE 0.9% 500 ML IV ONE ×3 (16:04→21:00)
--- NOTE | 2025-06-22 16:25 | DVH ---
Procedure: CT CHEST WITHOUT CONTRAST Reason for study/Clinical History: right lower consolidation, h/o sarcoidosis, COPD Comparison Study: XY CHEST PORTABLE on DOS: 06/22/25, XY CHEST PORTABLE on DOS: 05/24/25 TECHNIQUE: Multidetector CT of the chest was performed from the lung apices to the upper abdomen without the use of intravenous contract. Axial, coronal and sagittal multiplanar reformats were performed. Radiation Dose Information: CT Dose: CTDI volume is 9.05 mGy. Dose-length product is 329.74 mGy*cm The dose indicators for CT are the volume Computed Tomography (CT) Dose Index (CTDIvol) and the Dose Length Product (DLP), and are measured in units of mGy and mGy-cm, respectively. These indicators are not patient dose, but values generated from the CT scanner acquisition factors. The report includes radiation exposure data for exposures received during this examination. FINDINGS: Lower neck: Unremarkable. Lungs: Central airways patent. Mild hazy ground-glass opacity throughout both lungs. No perilymphatic nodules. No fibrotic changes or volume loss. Heart/Vascular Structures: Normal heart size. No pericardial effusion. Lymph Nodes: Few mildly prominent mediastinal and hilar lymph nodes measuring up to 1.1 cm in the right lower paratracheal region. Pleura: No pleural effusion or significant pneumothorax. Musculoskeletal: No acute osseous abnormality. Soft tissues: Normal. Upper abdomen: Limited portions of the upper abdomen are unremarkable. IMPRESSION: No focal airspace disease. In particular, no focal consolidation in the right lower lobe. Mild hazy ground-glass opacity throughout both lungs in a slightly centrilobular distribution. The differential is broad and includes a respiratory bronchiolitis if there is a smoking history, mild fluid overload, endobronchial spread of infection, or alveolar sarcoidosis although uncommon. Consider a 3 to 6-month high-resolution CT follow-up for reassessment. Radiation optimization: All CT scans at this facility use at least one of these dose optimization techniques: automated exposure control mA and/or kV adjustment per patient size (includes targeted exams where dose is matched to clinical indication) or iterative reconstruction.
[2025-06-22] MEDS ORDERED: DEXTROSE (50%) 50ML SYRG IV PRN (16:30)
[2025-06-22] MEDS: InsuLIN REG 1unit/0.01ml Soln (100units/ml) SC SCH (17:00)
[2025-06-22] MEDS: ACCU-CHEK COMFORT CURVE STRIP VI SCH (17:02)
[2025-06-22 17:07] LABS: Lactic Acid w/Reflex 5.9 mmol/L (0.4-2.0)
[2025-06-22 19:30] VITALS: PULSE 92; RESP 17; O2SAT 98
[2025-06-22 19:35] VITALS: PULSE 104; RESP 22; O2SAT 95
[2025-06-22] MEDS: IPRATROPIUM BROM 0.5 MG/2.5ML INH SOL NEB SCH (19:40)
[2025-06-22] MEDS: ACETYLCYSTEINE 20%(200MG/ML) SOL 4ML NEB SCH (19:40)
[2025-06-22] MEDS: LEVALBUTEROL HCL 1.25 MG/3 ML NEB NEB SCH (19:41)
[2025-06-22 19:42] VITALS: PULSE 102; RESP 22; O2SAT 99
[2025-06-22 21:53] LABS: Lactic Acid w/Reflex 3.1 mmol/L (0.4-2.0)
[2025-06-22] MEDS: VANCOMYCIN 750MG KIT 100 ML IV SCH (22:05)
[2025-06-22 22:16] VITALS: BP 126/78; PULSE 91; RESP 22; TEMP 97.9; O2SAT 95
[2025-06-23] VITALS (16 sets, daily range): BP systolic 90–121; BP diastolic 44–78; PULSE 69–93; RESP 16–22; TEMP 97.6–98.6; O2SAT 91–99
[2025-06-23 05:24] LABS: Hematocrit 34.5 % (36.0-46.0); Hemoglobin 11.6 g/dL (12.2-16.2); Mean Corpuscular Hemoglobin 30.4 pg (28.0-32.0); Mean Corpuscular Volume 90.4 fL (80.0-100.0); Nucleated Red Blood Cells % 0.0 %
[2025-06-23 05:31] LABS: Chloride 107 mmol/L (98-107); Potassium 4.5 mmol/L (3.5-5.1); Sodium 141 mmol/L (136-145)
[2025-06-23 05:32] LABS: Anion Gap 10 (5-15); Carbon Dioxide 24 mmol/L (20-31)
[2025-06-23 05:33] LABS: Calcium 9.3 mg/dL (8.7-10.4)
[2025-06-23 05:38] LABS: BUN/Creatinine Ratio 16.7 (10.0-20.0); Blood Urea Nitrogen 11 mg/dL (9-23)
[2025-06-23 05:43] LABS: Glucose 249 mg/dL (74-106)
[2025-06-23] MEDS ORDERED: AZITHROMYCIN 250 MG TAB PO SCH (10:00)
[2025-06-23] MEDS ORDERED: methylPREDNISolone SOD SUCC 40 MG/ML VL IV SCH (10:00)
--- NOTE | 2025-06-23 10:31 | DVHPN2 ---
Progress Note Date Seen: Jun 23, 2025 Medical Necessity Reason Pt with a Central, PICC or Fol: No Subjective Patient reports: No new complaints Review of Systems: HEENT:Normal, CVS:Normal, RESPIRATORY:Normal, GI:Normal, :Normal, MSK:Normal, NEURO:Normal Objective vital signs Vital Sign Date Time Temp Pulse Resp B/P (MAP) Pulse Ox O2 Delivery O2 Flow Rate FiO2 06/23/25 09:01 97.6 92 19 118/77 (91) 91 97.6 06/23/25 05:44 Nasal Cannula 2.0 06/23/25 05:44 28 Total Intake and Output 06/22/25 06/22/25 06/23/25 15:00 23:00 07:00 Intake Total 350 ml 1000 ml 500 ml Balance 350 ml 1000 ml 500 ml medications Current Medications Medications Dose Ordered Sig/Gisele Route Start Time Stop Time Status Last Admin Dose Admin Vancomycin HCl 0 ml @ 0 mls/hr PER PHARMACY IV 06/22/25 13:30 Acetaminophen 650 mg Q6HP PRN PO 06/22/25 13:30 Ipratropium [place] 0.5 mg Q6HR NEB 06/22/25 18:00 06/23/25 05:44 0.5 MG Levalbuterol HCl 0.625 mg Q6HR NEB 06/22/25 18:00 06/23/25 05:44 0.625 MG Vancomycin HCl 100 ml @ 100 mls/hr Q12HR IV 06/22/25 22:00 06/22/25 22:05 100 MLS/HR Levofloxacin/ Dextrose 100 ml @ 100 mls/hr DAILY IV 06/23/25 10:00 Acetylcysteine 200 mg Q6HR NEB 06/22/25 18:00 06/23/25 05:44 200 MG Diagnostic Test (Pha) 1 strip ACHS 06/22/25 17:00 06/23/25 07:06 1 STRIP Insulin Human Regular ACHS SC 06/22/25 17:00 06/23/25 07:13 6 UNITS Dextrose 50 ml UD PRN IV 06/22/25 16:30 Methylprednisolone Sodium Succinate 40 mg DAILY IV 06/23/25 10:00 Examination: GENERAL:Normal, HEENT:Normal, NECK:Normal, LUNGS:Normal, LUNGS:Abnormal (on oxygen, rhonchi), CVS:Normal, ABDOMEN:Normal, MSK:Normal, SKIN:Normal, NEURO:Normal, :Normal laboratory and microbiology Laboratory Tests 06/23/25 05:06 Test 06/23/25 05:06 Range/Units Serum Glucose 249 H 74-106 mg/dL Microbiology Date/Time Source Procedure Growth Status 06/22/25 08:53 Blood Blood Culture - Preliminary NO GROWTH AFTER 24 HOURS OF INCUBATION. Resulted Problem List/Assessment/Plan Problem List/Assessment/Plan #1 acute on chronic resp failure: cont oxygen #2 copd with exacerbation: steroids #3 ? pneumonia- gram positive/gram neg: iv levaquin #4 sarcoidosis #5 dm: ssi advance care planning- full code- time spent 19 mins Plan discussed with: Patient My Orders My Orders Orders - MICHEL MOROCHO MD Procedure Category Date Status Time Methylprednisolone PHA 06/23/25 Verified Sod Succ (Solu Medrol 22:00 Consistent DIET 06/23/25 Verified Carb(Ccho)Diabetes Lunch Basic Metabolic Panel LAB 06/24/25 Verified 06:00 Complete Blood Count LAB 06/24/25 Verified 06:00 Discontinue Tele JACQUES 06/23/25 Verified 10:26 Transfer Orders XFER 06/23/25 Verified 10:26 Date of Service: Jun 23, 2025 Billing Provider: MICHEL MOROCHO MD Common Visit Codes: [id number] INP/OBS CARE(HIGH) Secondary Visit Codes: [id number] CARE PLAN 30 MINUTES MICHEL MOROCHO MD Jun 23, 2025 10:30
--- NOTE | 2025-06-23 11:30 | DVHSR ---
APPROVED REPORT EXAM: Two-dimensional and M-mode echocardiogram with Doppler and color Doppler. Blood Pressure: 123/69 mmHg INDICATION SOB Orthopnea RISK FACTORS Height: 5'5", Weight: 168 DIMENSIONS LVDd 4.4 (3.8-5.7cm) LA (2D) 3.3 (1.9-4.0cm) Aortic Root 3.2 (2.0-3.7cm) LVDs 3.0 (2.5-4.0cm) LA (MM) (1.9-4.0cm) Aortic Cusp Exc 1.8 (1.5-2.0cm) EF (%) 65.0 (55-70%) Rt. Atrium 3.8 (1.9-4.0cm) Asc. Aorta cm IVSd 1.1 (0.7-1.1cm) RV (D) (1.8-2.4cm) PWd 1.0 (0.7-1.1cm) Mitral Valve Mitral Mitral Stenosis E wave 0.79m/s MV Mean GR. mmHg A wave 1.16m/s MV Peak GR. mmHg E/A ratio 0.7 2D MVA cm2 DECEL Time 166ms PRESS 1/2 Time ms Aortic Valve Aortic Valve Aortic Stenosis V1 1.19m/s AO Mean GR. 6mmHg V2 1.71m/s AO Peak GR. 12mmHg LVOT Diameter 2.0 (1.8-2.4cm) Doppler DAKOTAH 2.19cm2 Pulmonic Valve V2 1.19m/s Tricuspid Valve TR Velocity 2.84m/s RVSP 40mmHg Other Information Conclusion LV EF IS 65% NORMAL VALVES NORMAL RV FUNCTION RVSP IS 40 MM OF HG AND IS HIGH MILD PULMONARY HYPERTENSION NO EFFUSION
[2025-06-23] MEDS: POLYETHYLENE GLYCOL 17 GM PWDR PO ONE (16:42)
[2025-06-23] MEDS: LACTULOSE 20Gm/30ML SOLN PO ONE (16:42)
[2025-06-23] MEDS: methylPREDNISolone SOD SUCC 40 MG/ML VL IV SCH (21:48)
[2025-06-24] VITALS (15 sets, daily range): BP systolic 111–124; BP diastolic 61–82; PULSE 60–90; RESP 16–20; TEMP 96.6–99.4; O2SAT 92–99
[2025-06-24 05:28] LABS: Hematocrit 39.0 % (36.0-46.0); Hemoglobin 13.2 g/dL (12.2-16.2); Mean Corpuscular Hemoglobin 30.8 pg (28.0-32.0); Mean Corpuscular Volume 91.1 fL (80.0-100.0); Nucleated Red Blood Cells % 0.1 %
[2025-06-24 05:42] LABS: Anion Gap 8 (5-15); Carbon Dioxide 28 mmol/L (20-31); Chloride 105 mmol/L (98-107); Potassium 4.6 mmol/L (3.5-5.1); Sodium 141 mmol/L (136-145)
[2025-06-24 05:43] LABS: Calcium 9.5 mg/dL (8.7-10.4)
[2025-06-24 05:48] LABS: BUN/Creatinine Ratio 22.5 (10.0-20.0); Blood Urea Nitrogen 18 mg/dL (9-23)
[2025-06-24 05:52] LABS: Glucose 257 mg/dL (74-106)
[2025-06-24] MEDS ORDERED: hydrOXYzine 25 MG TAB or CAP PO PRN (10:00)
--- NOTE | 2025-06-24 14:10 | DVHPN2 ---
Progress Note Date Seen: Jun 24, 2025 Medical Necessity Reason Pt with a Central, PICC or Fol: No Subjective Patient reports: No new complaints Review of Systems: HEENT:Normal, CVS:Normal, RESPIRATORY:Normal, GI:Normal, :Normal, MSK:Normal, NEURO:Normal Objective vital signs Vital Sign Date Time Temp Pulse Resp B/P (MAP) Pulse Ox O2 Delivery O2 Flow Rate FiO2 06/24/25 12:30 98.8 78 18 115/66 (82) 95 98.8 06/24/25 12:09 Nasal Cannula 2.0 06/24/25 12:09 28 Total Intake and Output 06/23/25 06/23/25 06/24/25 15:00 23:00 07:00 Intake Total 600 ml 200 ml Balance 600 ml 200 ml medications Current Medications Medications Dose Ordered Sig/Gisele Route Start Time Stop Time Status Last Admin Dose Admin Acetaminophen 650 mg Q6HP PRN PO 06/22/25 13:30 Ipratropium [place] 0.5 mg Q6HR NEB 06/22/25 18:00 06/24/25 12:09 0.5 MG Levalbuterol HCl 0.625 mg Q6HR NEB 06/22/25 18:00 06/24/25 12:09 0.625 MG Levofloxacin/ Dextrose 100 ml @ 100 mls/hr DAILY IV 06/23/25 10:00 06/24/25 08:27 100 MLS/HR Acetylcysteine 200 mg Q6HR NEB 06/22/25 18:00 06/24/25 12:09 200 MG Diagnostic Test (Pha) 1 strip ACHS 06/22/25 17:00 06/24/25 10:43 1 STRIP Insulin Human Regular ACHS SC 06/22/25 17:00 06/24/25 11:52 4 UNITS Dextrose 50 ml UD PRN IV 06/22/25 16:30 Methylprednisolone Sodium Succinate 40 mg BID IV 06/23/25 22:00 06/24/25 08:27 40 MG Hydroxyzine Pamoate 25 mg DAILY PRN PO 06/24/25 10:00 Examination: GENERAL:Normal, HEENT:Normal, NECK:Normal, LUNGS:Normal, LUNGS:Abnormal (on oxygen), CVS:Normal, ABDOMEN:Normal, MSK:Normal, SKIN:Normal, NEURO:Normal, :Normal laboratory and microbiology Laboratory Tests 06/24/25 04:53 Test 06/24/25 04:53 Range/Units Serum Glucose 257 H 74-106 mg/dL Microbiology Date/Time Source Procedure Growth Status 06/22/25 08:53 Blood Blood Culture - Preliminary NO GROWTH AFTER 48 HOURS OF INCUBATION. Resulted Problem List/Assessment/Plan Problem List/Assessment/Plan #1 acute on chronic resp failure: cont oxygen #2 copd with exacerbation: steroids #3 ? pneumonia- gram positive/gram neg: iv levaquin #4 sarcoidosis #5 dm: ssi advance care planning- full code- time spent 19 mins Plan discussed with: Patient My Orders My Orders Orders - MICHEL MOROCHO MD Procedure Category Date Status Time Hydroxyzine Oral PHA 06/24/25 In Process (Vistaril Oral) 10:00 Date of Service: Jun 24, 2025 Billing Provider: MICHEL MOROCHO MD Common Visit Codes: [id number] INP/OBS CARE(HIGH) MICHEL MOROCHO MD Jun 24, 2025 14:10
[2025-06-24 15:21] LABS: Lactic Acid w/Reflex 3.9 mmol/L (0.4-2.0)
[2025-06-24 17:36] LABS: Lactic Acid w/Reflex 2.8 mmol/L (0.4-2.0)
[2025-06-25] VITALS (15 sets, daily range): BP systolic 105–121; BP diastolic 69–83; PULSE 66–88; RESP 16–18; TEMP 97.1–98.3; O2SAT 95–100
[2025-06-25] MEDS: predniSONE 20 MG TAB PO SCH (10:47)
[2025-06-25] MEDS ORDERED: AZIT500T66 PO ×2 (16:19→23:22)
[2025-06-25] MEDS ORDERED: EMPA1TAB PO ×2 (16:19→23:22)
[2025-06-25] MEDS ORDERED: PRED20TA2 PO ×2 (16:19→23:22)
[2025-06-25] MEDS ORDERED: METF-489 PO ×2 (16:19→23:22)
--- NOTE | 2025-06-25 16:21 | DVHDS2 ---
Discharge Summary Date of Admission Jun 22, 2025 at 13:22 Date of Discharge: Jun 25, 2025 Labs/Diagnostic Data: Laboratory Results Test 06/25/25 11:16 06/25/25 08:03 06/24/25 04:53 06/23/25 20:53 POC Glucose 197 mg/dl (70-106) Lactic Acid Level 1.3 mmol/L (0.4-2.0) White Blood Count 7.9 10^3/uL (4.4-10.8) Red Blood Count 4.28 10^6/uL (4.0-5.20) Hemoglobin 13.2 g/dL (12.2-16.2) Hematocrit 39.0 % (36.0-46.0) Mean Corpuscular Volume 91.1 fL (80.0-100.0) Mean Corpuscular Hemoglobin 30.8 pg (28.0-32.0) Mean Corpuscular Hemoglobin Concent 33.8 g/dL (32.0-36.0) Red Cell Distribution Width 13.1 % (11.8-14.3) Platelet Count 348 10^3/uL (140-450) Mean Platelet Volume 7.3 fL (6.9-10.8) Neutrophils (%) (Auto) 88.5 % (37.0-80.0) Lymphocytes (%) (Auto) 9.2 % (10.0-50.0) Monocytes (%) (Auto) 2.0 % (0.0-12.0) Eosinophils (%) (Auto) 0.1 % (0.0-7.0) Basophils (%) (Auto) 0.2 % (0.0-2.0) Neutrophils # (Auto) 7.0 10 ^3/uL (1.6-8.6) Lymphocytes # (Auto) 0.7 10 ^3/uL (0.4-5.4) Monocytes # (Auto) 0.2 10 ^3/uL (0-1.3) Eosinophils # (Auto) 0 10 ^3/uL (0-0.8) Basophils # (Auto) 0 10 ^3/uL (0-0.2) Nucleated Red Blood Cells 0.1 % Sodium Level 141 mmol/L (136-145) Potassium Level 4.6 mmol/L (3.5-5.1) Chloride Level 105 mmol/L (98-107) Carbon Dioxide Level 28 mmol/L (20-31) Anion Gap 8 (5-15) Blood Urea Nitrogen 18 mg/dL (9-23) Creatinine 0.80 mg/dL (0.550-1.02) Glomerular Filtration Rate Calc 83 mL/min (>90) BUN/Creatinine Ratio 22.5 (10.0-20.0) Serum Glucose 257 mg/dL (74-106) Calcium Level 9.5 mg/dL (8.7-10.4) Vancomycin Level Trough < 3.0 ug/mL (5-10) Test 06/22/25 15:58 06/22/25 10:25 06/22/25 09:38 06/22/25 08:53 Blood Gas Specimen Type Arterial Blood Gas Sample Site Right radial Blood Gas Patient Temperature 37.0 Arterial Blood Date Drawn [id number] Arterial Blood pH 7.433 (7.350-7.450) Arterial Blood Partial Pressure CO2 26.5 mmHg (32.0-45.0) Arterial Blood Partial Pressure O2 78.3 mmHg (83.0-108.0) Arterial Blood HCO3 17.3 mmol/L (21.0-28.0) Arterial Blood Oxygen Saturation 95.4 % (94.0-98.0) Arterial Blood Base Excess -5.2 mmol/L (-2.0-3.0) Arterial Blood Oxyhemoglobin 94.1 % (94.0-98.0) Arterial Blood Carboxyhemoglobin 0.8 % (0.5-1.5) Arterial Blood Methemoglobin 0.6 % (0.0-1.5) Samir Test Yes Blood Gas Total Hemoglobin 14.50 g/dL (12.0-16.0) Blood Gas Liter Flow 0.00 Blood Gas Modality Room air FiO2 % 21.0 Hemoglobin A1c 7.3 % A1C (<5.7) Influenza Type A Antigen Negative (Negative) Influenza Type B Antigen Negative (Negative) SARS-CoV-2 Antigen (Rapid) Negative (NEGATIVE) Total Bilirubin 0.5 mg/dL (0.2-1.0) Aspartate Amino Transferase (AST) 15 U/L (13-40) Alanine Aminotransferase (ALT) 16 U/L (7-40) Alkaline Phosphatase 101 U/L (46-116) B-Type Natriuretic Peptide 11.21 pg/mL (0-100) Total Protein 7.9 g/dL (5.7-8.2) Albumin 4.8 g/dL (3.2-4.8) Test 06/22/25 08:49 Urine Color Light-yellow (Yellow) Urine Clarity Clear (Clear) Urine pH 5.0 (5.0-9.0) Urine Specific [place] 1.019 (1.001-1.035) Urine Protein Negative (Negative) Urine Ketones Trace (Negative) Urine Blood Negative /uL (Negative) Urine Nitrite Negative (Negative) Urine Bilirubin Negative (Negative) Urine Urobilinogen Normal mg/dL (Negative) Urine Leukocyte Esterase Negative /uL (Negative) Urine RBC None seen /hpf (0 - 4) Urine Microscopic WBC 1 /HPF (0-5) Urine Squamous Epithelial Cells Few /hpf (<5) Urine Bacteria None seen /hpf (None Seen) Urine Glucose 3+ mg/dL (Normal) Other Laboratory Tests 06/24/25 04:53 Brief Hx & Hospital Course: 65-year-old female with a medical history of COPD, sarcoidosis presented to the hospital for complaint of worsening shortness of breath for the last 2 days. Patient reports that she has had COPD for the last 10 years, 40 pack year smoking history and never had a COPD exacerbation until this year in April when she was admitted at [facility] for 3 days and since then has had multiple flare-ups and was put on steroids and Z-Unruly on an outpatient basis and has been put on oxygen at 1-2 L/min by her manager pool at home. This episode started on Saturday and patient has had fever, chills, brownish phlegm, dyspnea Functional Class III - IV, also reports of orthopnea and has recently not been able to sleep flat in her bed. Denied any recent sick contacts. On arrival to the ER patient was seen to be tachycardic, had fever up to 101.4 degree F, elevated WBC count with left shift. 06/25: Patient is here for acute hypoxic respiratory failure COPD exacerbation and pneumonia possible. Patient was given Levaquin nebulizers and p.o. prednisone, she has home oxygen and has deescalated to home oxygen level now. Initially patient came in with hypoxia worsened from home level. Patient is feeling better. Plan for long-term taper prednisone, azithromycin 500 daily for 5 days,. Patient A1c 7.3. We will send home patient with metformin 500 XR daily and Jardiance 10. Patient to take diabetic diet. No smoking. Diagnosis: Acute on chronic hypoxic respiratory failure COPD, in exacerbation, with pneumonitis Pneumonia possible, Gram-negative/Gram-positive likely. Sarcoidosis Diabetes mellitus type 2., with hyperglycemia Plan: - long-term taper prednisone : 40 mg/2 tabs for 5 days, 1 tab 20 mg for 5 days, half tablet 10 mg for 6 day. - continue home oxygen 2-3 L nasal cannula. - azithromycin 500 daily for 5 days,. - Patient A1c 7.3. new diagnosis t2DM for patient. metformin 500mg XR daily and Jardiance 10mg daily. - Patient to take diabetic diet. - continue other home medications - Follow up with PCP 1-2 weeks. - No smoking. Condition at Discharge: Fair Final Diagnosis/Problems List Acute on chronic hypoxic respiratory failure COPD, in exacerbation, with pneumonitis Pneumonia possible, Gram-negative/Gram-positive likely. Sarcoidosis Diabetes mellitus type 2., with hyperglycemia Discharge Disposition: Home Discharge Instruct/Medications Scheduled Azithromycin (Zithromax Tablet), 250 MG PO DAILY Prednisone (Prednisone), 40 MG PO DAILY Discharge Statement: "Patient was advised to return to the ER or call 911 if any headaches, dizziness, shortness of breath, chest pain, abdominal pain, bleeding, fevers, or worsening of medical condition. Patient was counseled about treatment plan, medications, possible side effects, patientverbalized understanding. All questions were answered to the best of my ability. This discharge took greater then 30 minutes in planning, reviewing documentation, counseling the patient, and discussing with other team members." ASSESSMENT ASSESSMENT Assessment Date of Service: Jun 25, 2025 Billing Provider: MICHELLE CH MD Common Visit Codes: 22378-VWU/OBS DISCH DAY >30min MICHELLE CH MD Jun 25, 2025 16:21
== END 2025-06-25 19:07 | disposition home or self-care (01) | DRG 871 ==
LOC: EDBD 08:06 → ER 08:06 → OVERFLOW 13:22 → TELE-EAST 22:17 → EAST 06-23 10:28
PROVIDERS: ADMIT Internal Medicine; ATTEND Internal Medicine
DX: A41.50 Gram-negative sepsis, unspecified (principal); J15.69 Pneumonia due to other Gram-negative bacteria; J96.01 Acute respiratory failure with hypoxia; J96.21 Acute and chronic respiratory failure with hypoxia; J15.9 Unspecified bacterial pneumonia; J44.0 Chronic obstructive pulmonary disease with (acute) lower respiratory infection; E11.65 Type 2 diabetes mellitus with hyperglycemia; J44.1 Chronic obstructive pulmonary disease with (acute) exacerbation; Z20.822 Contact with and (suspected) exposure to COVID-19; J98.4 Other disorders of lung; D86.9 Sarcoidosis, unspecified; Z89.412 Acquired absence of left great toe; Z90.710 Acquired absence of both cervix and uterus; Z87.891 Personal history of nicotine dependence; Z88.0 Allergy status to penicillin; Z88.8 Allergy status to other drugs, medicaments and biological substances
CPT/HCPCS: 36415; 36600; 71045; 71250; 80048; 80053; 80202; 81001; 82805; 82962; 83036; 83605; 83880; 85025; 87040; 87426; 87804; 93005; 93306; 94640; 96365; 96367; 96375; 99291; G0378; J1815; J1956

== ENCOUNTER 2025-07-26 08:10 | Inpatient (IN) | payer OTHER, MEDICAID ==
[~2025-07-26] VITALS: Ht 165.1 cm; Wt 78.2 kg
[~2025-07-26 08:10] MED LIST changes: -AZIT-185 PO; +AZIT500T66 PO; +EMPA1TAB PO; +METF-489 PO
[2025-07-26 08:11] VITALS: RESP 35
--- NOTE | 2025-07-26 08:24 | ECG ---
[facility] Test Date: 2025-07-26 Test Time: 08:22:22 Pat Name: DASIA SIGALA Department: [facility] ED Patient ID: [facility]-[id number] Room: [address] [place] [address] Gender: F Pet Care Attendant: izabel : 1960 Requested By: FELIPA SRINIVASAN Order Number: [id number] Reading MD: Logan Alvarez Measurements Intervals [place] Rate: 124 P: 83 IN: 168 QRS: 68 QRSD: 77 T: -72 QT: 269 QTc: 387 Interpretive Statements Sinus tachycardia Nonspecific repol abnormality, diffuse leads Electronically Signed On 07-26-2025 15:29:29 PST by Logan Alvarez Please click the below link to view image of tracing.
--- NOTE | 2025-07-26 08:28 | ED.PDOC ---
SOB-HPI HPI Comments 65 year old female with PMHx of COPD LEILANI presents to the emergency department for chief complaint of shortness of breath onset this morning at 3AM. EMS administered CPAP and 2mg of versaid to Pt due to diminished lung capacity on the route to [facility]. Pt has social Hx of heavy cigarette use. In the ED, Pt's vitals are currently stable. Chief Complaint: Shortness of Breath Time Seen by MD: 08:25 Reviewed notes: Nurses Notes, Shank Sander Notes, Medications, Allergies Information Source: Patient, Emergency Med Personnel Mode of Arrival: EMS Severity: Moderate Timing: Hours Duration: Since onset Context: At Rest, With Light Exertion, With Heavy Exertion, Spontaneous Onset PE Risk Factors: None History of: COPD Prehospital treatment: Treatment (CPAP, versaid 2mg) Modifying Factors: Nothing Associated Signs and Symptoms: Other (shortness of breath) Radiation: No Radiation Past Medical History PAST MEDICAL HISTORY: COPD Surgical History: Appendectomy, Hysterectomy, Tonsillectomy 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 Pertinent [employer]ING WHE[employer]ER History Family History Family History: Family hx of lung khari Social History Smoker: Quit Less Than 1 Year, Cigarettes Alcohol: Denies ETOH Use Drugs: Denies Drug Use Lives In: Home Constitutional: denies: chills, diaphoresis, fatigue, fever, malaise, sweats, weakness, others EENTM: denies: blurred vision, double vision, ear bleeding, ear discharge, ear drainage, ear pain, ear ringing, eye pain, eye redness, hearing loss, mouth pain, mouth swelling, nasal discharge, nose bleeding, nose congestion, nose pain, photophobia, tearing, throat pain, throat swelling, voice changes, others Respiratory: reports: SOB at rest, shortness of breath, SOB with excertion; denies: cough, hemoptysis, orthopnea, stridor, wheezing, others Cardiovascular: denies: chest pain, dizzy spells, diaphoresis, Dyspnea on exertion, edema, irregular heart beat, left arm pain, lightheadedness, palpitations, PND, syncope, others Gastrointestinal: denies: abdomen distended, abdominal pain, blood streaked bowels, constipated, diarrhea, dysphagia, difficulty swallowing, hematemesis, melena, nausea, poor appetite, poor fluid intake, rectal bleeding, rectal pain, vomiting, others Genitourinary: denies: abnormal vagina bleeding, burning, dyspareunia, dysuria, flank pain, frequency, hematuria, incontinence, pain, , vagina discharge, urgency, others Neurological: denies: dizziness, fainting, headache, left sided numbness, left sided weakness, numbness, paresthesia, pre-existing deficit, right sided numbness, right sided weakness, seizure, speech problems, tingling, tremors, weakness, others Musculoskeletal: denies: back pain, gout, joint pain, joint swelling, muscle pain, muscle stiffness, neck pain, others Integumetry: denies: bruises, change in color, change in hair/nails, dryness, laceration, lesions, lumps, rash, wounds, others Allergic/Immunocompromised: denies: Difficulty Healing, Frequent Infections, Hives, Itching, others Hematologic/Lymphatic: denies: anemia, blood clots, easy bleeding, easy bruising, swollen glands, others Endocrine: denies: excessive hunger, excessive sweating, excessive thirst, excessive urination, flushing, intolerance to cold, intolerance to heat, unexplained weight gain, unexplained weight loss, others Psychiatric: denies: anxiety, bipolar disorder, depression, hopeless, panic disorder, schizophrenia, sleepless, suicidal, others All Other Systems: Reviewed and Negative Physical Exam General Appearance: Severe Distress HEENT: Normal ENT Inspection, Pharynx Normal, TMs Normal Neck: Full Range of Motion, Non-Tender, Normal, Normal Inspection Respiratory: Accessory Muscle Use, Respiratory Distress, Wheezing Cardiovascular: No Edema, No JVD, No Murmur, No Gallop, Normal Peripheral Pulses, Regular Rate/Rhythm Breast Exam: Deferred Gastrointestinal: No Organomegaly, Non Tender, No Pulsatile Mass, Normal Bowel Sounds, Soft Genitalia: Deferred Pelvic: Deferred Rectal: Deferred Extremities: No calf tenderness, Normal capillary refill, Normal inspection, Normal range of motion, Non-tender, No pedal edema Musculoskeletal : Apperance: Normal Neurologic: Alert, acid washer operator II-XII nml as Tested, No Motor Deficits, Normal Affect, Normal Mood, No Sensory Deficits Cerebellar Function: NOT DONE Reflexes: NOT DONE Skin: Normal Color Peripheral Pulses: 3+ Radial (R), 3+ Radial (L) Lymphatic: No Adenopathy EKG EKG : Pulse Rate (adult): 124 [place]: Normal Cardiac Rhythm: ST Block: None Hypertrophy: None ST: Normal Was a procedure done? Was a procedure done?: No Differential Dx Differential Diagnosis: Anxiety, Asthma, Bronchitis, CHF, COPD, Respiratory Distress X-Ray, Labs, Meds, VS Vital Signs Date Time Temp Pulse Resp B/P (MAP) Pulse Ox O2 Delivery O2 Flow Rate FiO2 07/26/25 11:30 112 121/75 Facial BiPAP Mask 30 07/26/25 09:28 122 112/80 Facial BiPAP Mask 30 07/26/25 08:37 124 07/26/25 08:33 101.2 07/26/25 08:27 36 97 Bi-Pap+ 30 30 07/26/25 08:22 124 07/26/25 08:20 130 07/26/25 08:20 134 Facial BiPAP Mask 30 07/26/25 08:10 101.2 134 30 122/86 94 101.2 Lab Test 07/26/25 13:00 07/26/25 12:12 07/26/25 11:21 07/26/25 10:23 Range/Units Urine Color Pending Urine Clarity Pending Urine pH Pending Urine Specific [place] Pending Urine Protein Pending Urine Ketones Pending Urine Blood Pending Urine Nitrite Pending Urine Bilirubin Pending Urine Urobilinogen Pending Urine Leukocyte Esterase Pending Urine RBC Pending Urine Microscopic WBC Pending Urine Squamous Epithelial Cells Pending Urine Bacteria Pending Urine Glucose Pending Lactic Acid Level 3.8 *H 0.4-2.0 mmol/L Troponin I High Sensitivity 14 10 </=34 ng/L Test 07/26/25 10:12 07/26/25 08:32 Range/Units POC Glucose 196 H 70-106 mg/dl White Blood Count 10.2 4.4-10.8 10^3/uL Red Blood Count 4.59 4.0-5.20 10^6/uL Hemoglobin 13.8 12.2-16.2 g/dL Hematocrit 40.6 36.0-46.0 % Mean Corpuscular Volume 88.4 80.0-100.0 fL Mean Corpuscular Hemoglobin 30.1 28.0-32.0 pg Mean Corpuscular Hemoglobin Concent 34.0 32.0-36.0 g/dL Red Cell Distribution Width 14.0 11.8-14.3 % Platelet Count 246 140-450 10^3/uL Mean Platelet Volume 7.5 6.9-10.8 fL Neutrophils (%) (Auto) 91.0 H 37.0-80.0 % Lymphocytes (%) (Auto) 5.2 L 10.0-50.0 % Monocytes (%) (Auto) 2.6 0.0-12.0 % Eosinophils (%) (Auto) 0.8 0.0-7.0 % Basophils (%) (Auto) 0.4 0.0-2.0 % Neutrophils # (Auto) 9.3 H 1.6-8.6 10 ^3/uL Lymphocytes # (Auto) 0.5 0.4-5.4 10 ^3/uL Monocytes # (Auto) 0.3 0-1.3 10 ^3/uL Eosinophils # (Auto) 0.1 0-0.8 10 ^3/uL Basophils # (Auto) 0 0-0.2 10 ^3/uL Nucleated Red Blood Cells 0.0 % Sodium Level 138 136-145 mmol/L Potassium Level 3.9 3.5-5.1 mmol/L Chloride Level 104 98-107 mmol/L Carbon Dioxide Level 24 20-31 mmol/L Anion Gap 10 5-15 Blood Urea Nitrogen 7 L 9-23 mg/dL Creatinine 0.84 0.550-1.02 mg/dL Glomerular Filtration Rate Calc 78 >90 mL/min BUN/Creatinine Ratio 8.3 L 10.0-20.0 Serum Glucose 133 H 74-106 mg/dL Lactic Acid Level 2.4 *H 0.4-2.0 mmol/L Calcium Level 9.4 8.7-10.4 mg/dL Total Bilirubin 0.6 0.2-1.0 mg/dL Aspartate Amino Transferase (AST) 14 13-40 U/L Alanine Aminotransferase (ALT) 14 7-40 U/L Alkaline Phosphatase 107 46-116 U/L Troponin I High Sensitivity < 3 L </=34 ng/L Total Protein 7.5 5.7-8.2 g/dL Albumin 4.7 3.2-4.8 g/dL Current Medications Medications (Trade) Dose Ordered Sig/Gisele Route Start Time Stop Time Status Last Admin Lorazepam (Ativan Inj) 1 mg ONCE ONCE IV 07/26/25 08:15 07/26/25 08:16 DC 07/26/25 08:29 Acetaminophen (Tylenol Tablet) 650 mg ONCE ONCE PO 07/26/25 08:30 07/26/25 08:31 DC 07/26/25 08:33 Ceftriaxone Sodium 50 ml @ 100 mls/hr ONCE ONCE IV 07/26/25 08:45 07/26/25 09:14 DC 07/26/25 09:22 Azithromycin 250 ml @ 125 mls/hr ONCE ONCE IV 07/26/25 08:45 07/26/25 10:44 DC 07/26/25 09:39 Methylprednisolone Sodium Succinate (Solu Medrol) 125 mg ONCE ONCE IV 07/26/25 08:45 07/26/25 08:46 DC 07/26/25 09:22 Albuterol (Ventolin Medneb) 5 mg ONCE ONCE NEB 07/26/25 08:45 07/26/25 08:46 DC 07/26/25 09:20 Ipratropium [place] (Atrovent Medneb) 0.5 mg ONCE ONCE NEB 07/26/25 08:45 07/26/25 08:46 DC 07/26/25 09:21 Magnesium Sulfate/ Dextrose 100 ml @ 100 mls/hr ONCE ONCE IV 07/26/25 08:45 07/26/25 09:44 DC 07/26/25 09:26 Patient alert. On CPAP. Continues to smoke cigarettes. Moving all extremities. Placed on BiPAP. Was given Ativan. She did have fever. Was given Tylenol. Was given magnesium. Was given steroid. Was given breathing treatment. Counseled patient on effects of smoking cigarettes for 15 minutes. Continue monitoring. EKG reviewed does not show any acute changes. [place] approved inpatient admission [id number]. Time of 1ST Reevaluation: 08:55 Reevaluation 1ST: Unchanged Patient Education/Counseling: Diagnosis, Treatment, Need For Follow Up Family Education/Counseling: Diagnosis, Treatment, No Family Present SEPSIS Sepsis Screen Physician Orders Chest Portable (07/26/25 08:22) Urinalysis (07/26/25 08:22) Blood Culture (07/26/25 08:22) BIPAP (07/26/25 08:20) Abg W/ Co-Ox (07/26/25 13:27) Vital Signs Date Time Temp Pulse Resp B/P (MAP) Pulse Ox O2 Delivery O2 Flow Rate FiO2 07/26/25 11:30 112 121/75 Facial BiPAP Mask 30 07/26/25 09:28 122 112/80 Facial BiPAP Mask 30 07/26/25 08:37 124 07/26/25 08:33 101.2 07/26/25 08:27 36 97 Bi-Pap+ 30 30 07/26/25 08:22 124 07/26/25 08:20 130 07/26/25 08:20 134 Facial BiPAP Mask 30 07/26/25 08:10 101.2 134 30 122/86 94 101.2 Laboratory Tests Test 07/26/25 08:32 07/26/25 12:12 Lactic Acid Level 2.4 mmol/L (0.4-2.0) *H 3.8 mmol/L (0.4-2.0) *H White Blood Count 10.2 10^3/uL (4.4-10.8) Medications Medications Dose Ordered Sig/Gisele Route Start Time Stop Time Status Last Admin Dose Admin Acetaminophen 650 mg ONCE ONCE PO 07/26/25 08:30 07/26/25 08:31 DC 07/26/25 08:33 Albuterol 5 mg ONCE ONCE NEB 07/26/25 08:45 07/26/25 08:46 DC 07/26/25 09:20 Azithromycin 250 ml @ 125 mls/hr ONCE ONCE IV 07/26/25 08:45 07/26/25 10:44 DC 07/26/25 09:39 Ceftriaxone Sodium 50 ml @ 100 mls/hr ONCE ONCE IV 07/26/25 08:45 07/26/25 09:14 DC 07/26/25 09:22 Ipratropium [place] 0.5 mg ONCE ONCE NEB 07/26/25 08:45 07/26/25 08:46 DC 07/26/25 09:21 Lorazepam 1 mg ONCE ONCE IV 07/26/25 08:15 07/26/25 08:16 DC 07/26/25 08:29 Magnesium Sulfate/ Dextrose 100 ml @ 100 mls/hr ONCE ONCE IV 07/26/25 08:45 07/26/25 09:44 DC 07/26/25 09:26 Methylprednisolone Sodium Succinate 125 mg ONCE ONCE IV 07/26/25 08:45 07/26/25 08:46 DC 07/26/25 09:22 Departure 1 Departure Time of Disposition: 09:20 Impression: Primary Impression: Acute respiratory failure Qualified Codes: J96.01 - Acute respiratory failure with hypoxia Additional Impressions: COPD exacerbation Pneumonitis Disposition: ADMITTED INPATIENT Admit to: Med Surg Condition: Guarded Critical Care Note Critical Care Time?: Yes (90 min-critical care time only) Stability Stability form required: No Heart Score Heart Score: Heart Score Response (Comments) Value History Slightly Suspicious 0 EKG Normal 0 Age 45-64 1 Risk Factors >3 or Hx ASHD 2 Troponin Normal limit 0 Total 3 I personally scribed for FELIPA SRINIVASAN MD ([email or web address]) on 07/26/25 at 08:28. Electronically submitted by Dodie Bustillos ([email or web address]). I personally scribed for FELIPA SRINIVASAN MD ([email or web address]) on 07/26/25 at 08:37. Electronically submitted by Michael Lucia ([email or web address]). FELIPA SRINIVASAN MD Jul 26, 2025 08:28
[2025-07-26] MEDS: LORazepam 2MG/ML-1ML VIAL IV ONE (08:29)
[2025-07-26] MEDS: ACETAMINOPHEN 325 MG TAB PO ONE (08:33)
[2025-07-26] MEDS: LORazepam 2MG/ML-1ML VIAL ONE (08:33)
--- NOTE | 2025-07-26 09:00 | DVH ---
CLINICAL INFORMATION: Shortness of breath. TECHNIQUE: Single AP portable chest radiograph was obtained. COMPARISON: CT CHEST WITHOUT CONTRAST on DOS: 06/22/25, XY CHEST PORTABLE on DOS: 06/22/25, XY CHEST PORTABLE on DOS: 05/24/25 FINDINGS: Lungs: Hyperaeration of the lungs with flattening of the diaphragm suggesting emphysematous changes. Opacities in the lung bases are most consistent with atelectasis. No focal consolidation visualized. Portions of the left lung apex are obscured by the patient's chin/face. Cardiac: Heart size is within normal limits. Pulmonary vasculature: Prominence of the pulmonary vasculature. Mediastinum/colton: Unremarkable. Bones: No acute osseous abnormality identified. Other: No other significant findings. IMPRESSION: 1. Prominence of the pulmonary vasculature May suggest a degree of pulmonary vascular congestion in the appropriate clinical setting. 2. Bibasilar atelectasis with no focal consolidation visualized. 3. Additional nonacute findings as described above.
[2025-07-26] MEDS: ALBUTEROL SULF 2.5 MG/0.5ML(0.5%) NEB SOLN NEB ONE ×2 (09:20→16:51)
[2025-07-26] MEDS: IPRATROPIUM BROM 0.5 MG/2.5ML INH SOL NEB ONE (09:21)
[2025-07-26] MEDS: methylPREDNISolone SOD SUCC 125 MG/2 ML VL IV ONE (09:22)
[2025-07-26] MEDS: MAGNESIUM SULFATE 1GM/100ML 100 ML IV ONE ×2 (09:26→14:50)
[2025-07-26 09:38] LABS: Hematocrit 40.6 % (36.0-46.0); Hemoglobin 13.8 g/dL (12.2-16.2); Mean Corpuscular Hemoglobin 30.1 pg (28.0-32.0); Mean Corpuscular Volume 88.4 fL (80.0-100.0); Nucleated Red Blood Cells % 0.0 %
[2025-07-26] MEDS: AZITHROMYCIN 500MG/250ML 250 ML IV ONE (09:39)
[2025-07-26 09:51] LABS: Alanine Aminotransferase 14 U/L (7-40); Albumin 4.7 g/dL (3.2-4.8); Alkaline Phosphatase 107 U/L (46-116); Anion Gap 10 (5-15); BUN/Creatinine Ratio 8.3 (10.0-20.0); Calcium 9.4 mg/dL (8.7-10.4); Carbon Dioxide 24 mmol/L (20-31); Chloride 104 mmol/L (98-107); Potassium 3.9 mmol/L (3.5-5.1); Sodium 138 mmol/L (136-145); Total Protein 7.5 g/dL (5.7-8.2)
[2025-07-26 09:52] LABS: Bilirubin, Total 0.6 mg/dL (0.2-1.0); Blood Urea Nitrogen 7 mg/dL (9-23); Glucose 133 mg/dL (74-106)
[2025-07-26 09:55] LABS: Lactic Acid w/Reflex 2.4 mmol/L (0.4-2.0)
[2025-07-26 13:47] LABS: Urine Protein, UAD Negative (Negative)
[2025-07-26] MEDS ORDERED: HYDROcodone-ACET 5/325MG TAB PO PRN (14:15)
[2025-07-26] MEDS ORDERED: NITROGLYCERIN 0.4 MG SL TAB SL PRN (14:15)
[2025-07-26] MEDS ORDERED: ONDANSETRON HCL 4 MG/2 ML VIAL IV PRN (14:15)
[2025-07-26] MEDS ORDERED: ACETAMINOPHEN 325 MG TAB PO PRN (14:15)
[2025-07-26] MEDS ORDERED: DOCUSATE SOD 100 MG CAP PO PRN (14:15)
--- NOTE | 2025-07-26 14:25 | DVHHP2 ---
History of Present Illness Reason for Visit: Shortness of breath History of Present Illness Shazia Henry is a 65-year-old female with past medical history of COPD, who came to the hospital for shortness of breath. Patient states she has been hospitalized 4 times in the last 4 months due to her breathing. She was recently sent home with home oxygen that she wears at 1-2L N/C. She mostly wears it at night. she states that last night she believes she accidently hit her oxygen off in her sleep and that lead her back to the hospital. Pulmonary: COPD Past Surgical History: Appendectomy, Hysterectomy, Other (Left foot), Tonsillectomy Smoke: Quit (March 2025) ALCOHOL: rare Drugs: None Lives: with Family Domestic Violence: Neg Review of Systems Constitutional: Yes: Weakness, Malaise; No: Fever, Chills, Sweats, Other Eyes: No: Pain, Vision change, Conjunctivae inflammation, Eyelid inflammation, Other, Redness ENT: No: Ear pain, Ear discharge, Nose pain, Nose discharge, Nose congestion, Mouth pain, Mouth swelling, Throat pain, Throat swelling, Other Respiratory: Shortness of breath, SOB with excertion, Wheezing; No: Cough, Dry, Hemoptysis, Pleuritic Pain, Sputum, Wheezing, Other Cardiovascular: No: Chest Pain, Palpitations, Orthopnea, Paroxysmal Noc. Dyspnea, Edema, Lt Headedness, Other Gastrointestinal: No: Nausea, Vomiting, Abdominal Pain, Diarrhea, Constipation, Melena, Hematochezia, Other Genitourinary: No Dysuria, No Frequency, No Incontinence, No Hematuria, No Retention, No Other Musculoskeletal: No: other, neck pain, shoulder pain, arm pain, back pain, hand pain, leg pain, foot pain Skin: No: Rash, Lesions, Jaundice, Bruising, Other Neurological: No: Weakness, Numbness, Incoordination, Change in speech, Confusion, Seizures, Other Allergies: Coded Allergies: Miconazole (Verified Allergy, Unknown, 05/24/25) Penicillins (Verified Allergy, Unknown, 05/24/25) Exam Vital Signs Vital Signs Date Time Temp Pulse Resp B/P (MAP) Pulse Ox O2 Delivery O2 Flow Rate FiO2 07/26/25 13:53 98.4 07/26/25 11:30 112 121/75 Facial BiPAP Mask 30 07/26/25 08:27 36 97 General Appearance: Alert, Oriented X3, Cooperative, Other (fever) HEENT: Atraumatic, PERRLA, EOMI Respiratory: Other (whezzing, diminished breath sounds) Cardiovascular: Normal S1, Normal S2, Other (ST) Abdominal: Normal bowel sounds, Soft, No tenderness Extremities: No clubbing, No cyanosis, No edema, Normal pulses, No tenderness/swelling Skin: No rashes, No breakdown, No significant lesion Neuro: Normal gait, Normal speech, Strength at 5/5 X4 ext, Normal tone Psych/Mental Status: Mental status NL, Mood NL Labs/Xrays Labs Test 07/26/25 13:00 07/26/25 12:12 07/26/25 11:21 07/26/25 10:12 Range/Units Urine Color Light-yellow Yellow Urine Clarity Clear Clear Urine pH 5.0 5.0-9.0 Urine Specific [place] 1.010 1.001-1.035 Urine Protein Negative Negative Urine Ketones Negative Negative Urine Blood Negative Negative /uL Urine Nitrite Negative Negative Urine Bilirubin Negative Negative Urine Urobilinogen Normal Negative mg/dL Urine Leukocyte Esterase Negative Negative /uL Urine RBC <1 0 - 4 /hpf Urine Microscopic WBC < 1 0-5 /HPF Urine Squamous Epithelial Cells Few <5 /hpf Urine Bacteria Few H None Seen /hpf Urine Glucose 1+ H Normal mg/dL Lactic Acid Level 3.8 *H 0.4-2.0 mmol/L Troponin I High Sensitivity 14 </=34 ng/L POC Glucose 196 H 70-106 mg/dl Test 07/26/25 08:32 Range/Units White Blood Count 10.2 4.4-10.8 10^3/uL Red Blood Count 4.59 4.0-5.20 10^6/uL Hemoglobin 13.8 12.2-16.2 g/dL Hematocrit 40.6 36.0-46.0 % Mean Corpuscular Volume 88.4 80.0-100.0 fL Mean Corpuscular Hemoglobin 30.1 28.0-32.0 pg Mean Corpuscular Hemoglobin Concent 34.0 32.0-36.0 g/dL Red Cell Distribution Width 14.0 11.8-14.3 % Platelet Count 246 140-450 10^3/uL Mean Platelet Volume 7.5 6.9-10.8 fL Neutrophils (%) (Auto) 91.0 H 37.0-80.0 % Lymphocytes (%) (Auto) 5.2 L 10.0-50.0 % Monocytes (%) (Auto) 2.6 0.0-12.0 % Eosinophils (%) (Auto) 0.8 0.0-7.0 % Basophils (%) (Auto) 0.4 0.0-2.0 % Neutrophils # (Auto) 9.3 H 1.6-8.6 10 ^3/uL Lymphocytes # (Auto) 0.5 0.4-5.4 10 ^3/uL Monocytes # (Auto) 0.3 0-1.3 10 ^3/uL Eosinophils # (Auto) 0.1 0-0.8 10 ^3/uL Basophils # (Auto) 0 0-0.2 10 ^3/uL Nucleated Red Blood Cells 0.0 % Sodium Level 138 136-145 mmol/L Potassium Level 3.9 3.5-5.1 mmol/L Chloride Level 104 98-107 mmol/L Carbon Dioxide Level 24 20-31 mmol/L Anion Gap 10 5-15 Blood Urea Nitrogen 7 L 9-23 mg/dL Creatinine 0.84 0.550-1.02 mg/dL Glomerular Filtration Rate Calc 78 >90 mL/min BUN/Creatinine Ratio 8.3 L 10.0-20.0 Serum Glucose 133 H 74-106 mg/dL Calcium Level 9.4 8.7-10.4 mg/dL Total Bilirubin 0.6 0.2-1.0 mg/dL Aspartate Amino Transferase (AST) 14 13-40 U/L Alanine Aminotransferase (ALT) 14 7-40 U/L Alkaline Phosphatase 107 46-116 U/L Total Protein 7.5 5.7-8.2 g/dL Albumin 4.7 3.2-4.8 g/dL TECHNIQUE: Single AP portable chest radiograph was obtained. FINDINGS: Lungs: Hyperaeration of the lungs with flattening of the diaphragm suggesting emphysematous changes. Opacities in the lung bases are most consistent with atelectasis. No focal consolidation visualized. Portions of the left lung apex are obscured by the patient's chin/face. Cardiac: Heart size is within normal limits. Pulmonary vasculature: Prominence of the pulmonary vasculature. Mediastinum/colton: Unremarkable. Bones: No acute osseous abnormality identified. Other: No other significant findings. IMPRESSION: 1. Prominence of the pulmonary vasculature May suggest a degree of pulmonary vascular congestion in the appropriate clinical setting. 2. Bibasilar atelectasis with no focal consolidation visualized. 3. Additional nonacute findings as described above. SEPSIS Sepsis Screen Date sepsis recognized/suspect: Jul 26, 2025 Time Sepsis recognized/suspect: 809 Recent Procedure: No On Antibiotic Therapy: No Respiratory Rate >20: Yes Heart Rate >90: Yes Temp<36 C (96.8 F) or >38.3 C: Yes SBP <90 or MAP <65 mmHG: No New Acute Mental Status Change: No Is the patient on CPAP, BIPAP,: Yes Physician Orders Chest Portable (07/26/25 08:22) Blood Culture (07/26/25 08:22) BIPAP (07/26/25 08:20) Abg W/ Co-Ox (07/26/25 13:27) Admit (07/26/25 14:05) Code Status (07/26/25 14:05) 2 Gm Sodium Diet (07/26/25 Dinner) Sodium Chloride Lock (Saline Lock Ns) (07/26/25 22:00) Hydrocodone-Acet 5/325mg Tab (Buchanan 5/32 (07/26/25 14:15) Ondansetron Hcl (Zofran) (07/26/25 14:15) Docusate Sodium Capsule (Colace Capsule) (07/26/25 14:15) Complete Blood Count (07/27/25 04:00) Comprehensive Metabolic Panel (07/27/25 04:00) Condition: Serious (07/26/25 14:05) Acetaminophen Tablet (Tylenol Tablet) (07/26/25 14:15) Nitroglycerin Sublingual (Ntrostat Subli (07/26/25 14:15) Morphine Sulfate Injection (07/26/25 14:15) Stat Ekg For Chest Pain (07/26/25 14:05) Notify Of Changes From Base (07/26/25 14:05) Record Cutter For 24 Hours (07/26/25 14:05) Emergency Dysrhythmia Protocol (07/26/25 14:05) Rhythm Strips Once Every Shift (07/26/25 14:05) Oxygen By Nasal Cannula (07/26/25 14:05) Sodium Chloride 0.9% (07/26/25 14:15) Ceftriaxone Ivpb Rocephin (07/27/25 09:00) Azithromycin 500mg/250ml (Zithromax 500m (07/27/25 10:00) Magnesium Zeus (07/26/25 14:15) Methylprednisolone Sod Succ (Solu Medrol (07/26/25 22:00) Ipratropium Medneb (Atrovent Medneb) (07/26/25 18:00) Albuterol Medneb (Ventolin Medneb) (07/26/25 18:00) Magnesium (07/27/25 04:00) Vital Signs Date Time Temp Pulse Resp B/P (MAP) Pulse Ox O2 Delivery O2 Flow Rate FiO2 07/26/25 13:53 98.4 07/26/25 11:30 112 121/75 Facial BiPAP Mask 30 07/26/25 09:28 122 112/80 Facial BiPAP Mask 30 07/26/25 08:37 124 07/26/25 08:33 101.2 07/26/25 08:27 36 97 Bi-Pap+ 30 30 07/26/25 08:22 124 07/26/25 08:20 130 07/26/25 08:20 134 Facial BiPAP Mask 30 07/26/25 08:10 101.2 134 30 122/86 94 101.2 Laboratory Tests Test 07/26/25 08:32 07/26/25 12:12 Lactic Acid Level 2.4 mmol/L (0.4-2.0) *H 3.8 mmol/L (0.4-2.0) *H White Blood Count 10.2 10^3/uL (4.4-10.8) Medications Medications Dose Ordered Sig/Gisele Route Start Time Stop Time Status Last Admin Dose Admin Acetaminophen 650 mg ONCE ONCE PO 07/26/25 08:30 07/26/25 08:31 DC 07/26/25 08:33 650 MG Albuterol 5 mg ONCE ONCE NEB 07/26/25 08:45 07/26/25 08:46 DC 07/26/25 09:20 5 MG Azithromycin 250 ml @ 125 mls/hr ONCE ONCE IV 07/26/25 08:45 07/26/25 10:44 DC 07/26/25 09:39 125 MLS/HR Ceftriaxone Sodium 50 ml @ 100 mls/hr ONCE ONCE IV 07/26/25 08:45 07/26/25 09:14 DC 07/26/25 09:22 100 MLS/HR Ipratropium Eads 0.5 mg ONCE ONCE NEB 07/26/25 08:45 07/26/25 08:46 DC 07/26/25 09:21 0.5 MG Lorazepam 1 mg ONCE ONCE IV 07/26/25 08:15 07/26/25 08:16 DC 07/26/25 08:29 1 MG Magnesium Sulfate/ Dextrose 100 ml @ 100 mls/hr ONCE ONCE IV 07/26/25 08:45 07/26/25 09:44 DC 07/26/25 09:26 100 MLS/HR Methylprednisolone Sodium Succinate 125 mg ONCE ONCE IV 07/26/25 08:45 07/26/25 08:46 DC 07/26/25 09:22 125 MG Assessment/Plan Assessment/Plan Assessment: Hypoxemia, COPD exacerbation, Acute on chronic respiratory failure, Possible sepsis, Leukocytosis, Lactic acidosis, Plan: Admit to Tele, BiPAP as needed, Supplemental oxygen as needed, IV antibiotics, IV steroids, Breathing treatments, Blood cultures, UA, Urine culture, Home medications reconciled, Plan discussed with: Patient My Orders Orders - RANDALL VILLA EDUCATION TECHNICIAN Procedure Category Date Status Time Abg W/ Co-Ox RT 07/26/25 Logged 13:27 Admit ADMIT 07/26/25 Transmitted 14:05 Code Status CODE 07/26/25 Transmitted 14:05 2 Gm Sodium Diet DIET 07/26/25 Transmitted Dinner Sodium Chloride Lock PHA 07/26/25 Transmitted (Saline Lock Ns) 22:00 Hydrocodone-Acet PHA 07/26/25 Transmitted 5/325mg Tab (Buchanan 14:15 Ondansetron Hcl PHA 07/26/25 Transmitted (Zofran) 14:15 Docusate Sodium PHA 07/26/25 Transmitted Capsule (Colace 14:15 Complete Blood Count LAB 07/27/25 Verified 04:00 Comprehensive LAB 07/27/25 Verified Metabolic Panel 04:00 Condition: Serious JACQUES 07/26/25 Transmitted 14:05 Acetaminophen Tablet PHA 07/26/25 Transmitted (Tylenol Tablet) 14:15 Nitroglycerin PHA 07/26/25 Transmitted Sublingual (Ntrostat 14:15 Morphine Sulfate [facility] 07/26/25 Verified Injection 14:15 Stat Ekg For Chest [facility] 07/26/25 Verified Pain 14:05 Notify Md Of Changes [facility] 07/26/25 Verified From Base 14:05 Record Cutter For [facility] 07/26/25 Verified 24 Hours 14:05 Emergency Dysrhythmia [facility] 07/26/25 Verified Protocol 14:05 Rhythm Strips Once [facility] 07/26/25 Verified Every Shift 14:05 Oxygen By Nasal RT 07/26/25 Verified Cannula 14:05 Sodium Chloride 0.9% [facility] 07/26/25 Verified 14:15 Ceftriaxone Ivpb [facility] 07/27/25 Verified Rocephin 09:00 Azithromycin PHA 07/27/25 Verified 500mg/250ml 10:00 Magnesium Zeus PHA 07/26/25 Verified 14:15 Methylprednisolone PHA 07/26/25 Verified Sod Succ (Solu Medrol 22:00 Ipratropium Medneb PHA 07/26/25 Verified (Atrovent Medneb) 18:00 Albuterol Medneb PHA 07/26/25 Verified (Ventolin Medneb) 18:00 Magnesium LAB 07/27/25 Verified 04:00 Date of Service: Jul 26, 2025 Billing Provider: RANDALL VILLA Common Visit Codes: [id number] INP/OBS CARE (HIGH) RANDALL VILLA Jul 26, 2025 14:25
[2025-07-26] MEDS: SODIUM CHLORIDE 0.9% 1,700 ML IV ONE (14:28)
[2025-07-26] MEDS ORDERED: MORPHINE SULFATE 4 MG/ML SYR/VIAL IV PRN (14:30)
[2025-07-26 15:18] VITALS: BP 121/75; PULSE 93; RESP 18; TEMP 98.4; O2SAT 94
[2025-07-26 15:26] VITALS: O2SAT 94
[2025-07-26 15:55] LABS: Lactic Acid w/Reflex 5.1 mmol/L (0.4-2.0)
[2025-07-26 16:50] VITALS: PULSE 78; RESP 22; O2SAT 94
[2025-07-26] MEDS: ALBUTEROL SULF 2.5 MG/0.5ML(0.5%) NEB SOLN ONE (16:51)
[2025-07-26 16:58] VITALS: PULSE 87; RESP 20; O2SAT 97
[2025-07-26] MEDS: IPRATROPIUM BROM 0.5 MG/2.5ML INH SOL NEB SCH (19:20)
[2025-07-26] MEDS: ALBUTEROL SULF 2.5 MG/0.5ML(0.5%) NEB SOLN NEB SCH (19:20)
[2025-07-26 21:00] VITALS: RESP 20; RESP 35; O2SAT 93
[2025-07-26] MEDS: hydrOXYzine HCL 10 MG TAB PO ONE (21:15)
[2025-07-26] MEDS: SODIUM CHLOR 0.9% PF (SALINE LOCK) 10ML VIAL/SYR IV SCH (22:00)
[2025-07-26] MEDS: methylPREDNISolone SOD SUCC 40 MG/ML VL IV SCH (22:42)
[2025-07-26 23:05] LABS: Lactic Acid w/Reflex 5.1 mmol/L (0.4-2.0)
[2025-07-27] VITALS (15 sets, daily range): BP systolic 100–115; BP diastolic 59–77; PULSE 74–100; RESP 16–21; TEMP 97.8–98.6; O2SAT 92–99
[2025-07-27] MEDS: TEMAZEPAM 15 MG CAP PO ONE (00:44)
[2025-07-27 05:18] LABS: Hematocrit 35.6 % (36.0-46.0); Hemoglobin 11.7 g/dL (12.2-16.2); Mean Corpuscular Hemoglobin 29.8 pg (28.0-32.0); Mean Corpuscular Volume 90.6 fL (80.0-100.0); Nucleated Red Blood Cells % 0.0 %
[2025-07-27 05:37] LABS: Alanine Aminotransferase 14 U/L (7-40); Albumin 4.0 g/dL (3.2-4.8); Alkaline Phosphatase 78 U/L (46-116); Anion Gap 8 (5-15); BUN/Creatinine Ratio 15.7 (10.0-20.0); Bilirubin, Total 0.4 mg/dL (0.2-1.0); Blood Urea Nitrogen 13 mg/dL (9-23); Calcium 9.1 mg/dL (8.7-10.4); Carbon Dioxide 22 mmol/L (20-31); Magnesium 2.2 mg/dL (1.6-2.6); Potassium 4.0 mmol/L (3.5-5.1); Sodium 138 mmol/L (136-145); Total Protein 6.6 g/dL (5.7-8.2)
[2025-07-27 05:43] LABS: Chloride 108 mmol/L (98-107); Glucose 247 mg/dL (74-106)
[2025-07-27] MEDS ORDERED: TIOT17SP INH (05:53)
[2025-07-27] MEDS ORDERED: PRED10TA PO (05:53)
[2025-07-27] MEDS: AZITHROMYCIN 500MG/250ML 250 ML IV SCH (09:55)
--- NOTE | 2025-07-27 12:33 | DVHPN2 ---
Progress Note Date Seen: Jul 27, 2025 Medical Necessity Reason Pt with a Central, PICC or Fol: No Subjective Patient reports: No new complaints Review of Systems: HEENT:Normal, CVS:Normal, RESPIRATORY:Normal, GI:Normal, :Normal, MSK:Normal, NEURO:Normal Objective vital signs Vital Sign Date Time Temp Pulse Resp B/P (MAP) Pulse Ox O2 Delivery O2 Flow Rate FiO2 07/27/25 11:33 78 18 94 07/27/25 08:45 98.0 105/65 (78) 98.0 07/27/25 06:44 Nasal Cannula* 2 28 Total Intake and Output 07/26/25 07/26/25 07/27/25 15:00 23:00 07:00 Intake Total 0 ml Balance 0 ml medications Current Medications Medications Dose Ordered Sig/Gisele Route Start Time Stop Time Status Last Admin Dose Admin Sodium Chloride 10 ml Q8HR IV 07/26/25 22:00 07/27/25 05:54 10 ML Acetaminophen/ Hydrocodone Bitart 1 tab Q4HP PRN PO 07/26/25 14:15 Ondansetron HCl 4 mg Q4HP PRN IV 07/26/25 14:15 Docusate Sodium 100 mg BIDPRN PRN PO 07/26/25 14:15 Acetaminophen 650 mg Q6HP PRN PO 07/26/25 14:15 Nitroglycerin 0.4 mg Q5MINP PRN SL 07/26/25 14:15 Morphine Sulfate 2 mg Q30M PRN IV 07/26/25 14:30 Ceftriaxone Sodium 50 ml @ 100 mls/hr DAILY@09 IV 07/27/25 09:00 07/27/25 09:55 100 MLS/HR Azithromycin 250 ml @ 125 mls/hr DAILY IV 07/27/25 10:00 07/27/25 09:55 125 MLS/HR Methylprednisolone Sodium Succinate 40 mg BID IV 07/26/25 22:00 07/27/25 09:56 40 MG Ipratropium Cory 0.5 mg Q6HWA NEB 07/26/25 18:00 07/27/25 11:32 0.5 MG Albuterol 2.5 mg Q6HWA NEB 07/26/25 18:00 07/27/25 11:33 2.5 MG Examination: GENERAL:Normal, HEENT:Normal, NECK:Normal, LUNGS:Normal, LUNGS:Abnormal (on oxygen, decreased bilateral), CVS:Normal, ABDOMEN:Normal, MSK:Normal, SKIN:Normal, NEURO:Normal, :Normal laboratory and microbiology Laboratory Tests 07/27/25 04:50 Test 07/27/25 04:50 Range/Units Serum Glucose 247 H 74-106 mg/dL Microbiology Date/Time Source Procedure Growth Status 07/26/25 08:45 Blood Blood Culture - Preliminary NO GROWTH AFTER 24 HOURS OF INCUBATION. Resulted Problem List/Assessment/Plan Problem List/Assessment/Plan #1 acute on chronic resp failure: cont oxygen #2 copd with exacerbation: on steroids #3 ?pneumonia- gram positive/neg: iv antibiotics #4 sarcoidosis advance care planning- full code- time spent 19 mins Plan discussed with: Patient Date of Service: Jul 27, 2025 Billing Provider: MICHEL MOROCHO MD Common Visit Codes: [id number] INP/OBS CARE(HIGH) Secondary Visit Codes: [id number] CARE PLAN 30 MINUTES MICHEL MOROCHO MD Jul 27, 2025 12:33
[2025-07-28] VITALS (10 sets, daily range): BP systolic 100–124; BP diastolic 56–80; PULSE 49–101; RESP 17–20; TEMP 97.6–98.6; O2SAT 93–99
[2025-07-28 06:00] LABS: Hematocrit 34.3 % (36.0-46.0); Hemoglobin 11.4 g/dL (12.2-16.2); Mean Corpuscular Hemoglobin 30.3 pg (28.0-32.0); Mean Corpuscular Volume 91.1 fL (80.0-100.0); Nucleated Red Blood Cells % 0.1 %
[2025-07-28 06:10] LABS: Potassium 4.4 mmol/L (3.5-5.1); Sodium 140 mmol/L (136-145)
[2025-07-28 06:11] LABS: Anion Gap 9 (5-15); Calcium 9.1 mg/dL (8.7-10.4); Carbon Dioxide 22 mmol/L (20-31)
[2025-07-28 06:12] LABS: Chloride 109 mmol/L (98-107)
[2025-07-28 06:16] LABS: BUN/Creatinine Ratio 17.1 (10.0-20.0); Blood Urea Nitrogen 13 mg/dL (9-23)
[2025-07-28 06:18] LABS: Glucose 288 mg/dL (74-106)
[2025-07-28] MEDS: AZITHROMYCIN 250 MG TAB PO SCH (10:55)
--- NOTE | 2025-07-28 11:41 | DVHDS2 ---
Discharge Summary Date of Admission Jul 26, 2025 at 14:05 Date of Discharge: Jul 28, 2025 Labs/Diagnostic Data: Laboratory Results Test 07/28/25 04:55 07/27/25 04:50 07/27/25 00:24 07/26/25 13:00 White Blood Count 10.8 10^3/uL (4.4-10.8) Red Blood Count 3.76 10^6/uL (4.0-5.20) Hemoglobin 11.4 g/dL (12.2-16.2) Hematocrit 34.3 % (36.0-46.0) Mean Corpuscular Volume 91.1 fL (80.0-100.0) Mean Corpuscular Hemoglobin 30.3 pg (28.0-32.0) Mean Corpuscular Hemoglobin Concent 33.3 g/dL (32.0-36.0) Red Cell Distribution Width 14.6 % (11.8-14.3) Platelet Count 246 10^3/uL (140-450) Mean Platelet Volume 7.8 fL (6.9-10.8) Neutrophils (%) (Auto) 92.2 % (37.0-80.0) Lymphocytes (%) (Auto) 4.7 % (10.0-50.0) Monocytes (%) (Auto) 2.9 % (0.0-12.0) Eosinophils (%) (Auto) 0.0 % (0.0-7.0) Basophils (%) (Auto) 0.2 % (0.0-2.0) Neutrophils # (Auto) 10.0 10 ^3/uL (1.6-8.6) Lymphocytes # (Auto) 0.5 10 ^3/uL (0.4-5.4) Monocytes # (Auto) 0.3 10 ^3/uL (0-1.3) Eosinophils # (Auto) 0 10 ^3/uL (0-0.8) Basophils # (Auto) 0 10 ^3/uL (0-0.2) Nucleated Red Blood Cells 0.1 % Sodium Level 140 mmol/L (136-145) Potassium Level 4.4 mmol/L (3.5-5.1) Chloride Level 109 mmol/L (98-107) Carbon Dioxide Level 22 mmol/L (20-31) Anion Gap 9 (5-15) Blood Urea Nitrogen 13 mg/dL (9-23) Creatinine 0.76 mg/dL (0.550-1.02) Glomerular Filtration Rate Calc 88 mL/min (>90) BUN/Creatinine Ratio 17.1 (10.0-20.0) Serum Glucose 288 mg/dL (74-106) Calcium Level 9.1 mg/dL (8.7-10.4) Magnesium Level 2.2 mg/dL (1.6-2.6) Total Bilirubin 0.4 mg/dL (0.2-1.0) Aspartate Amino Transferase (AST) 11 U/L (13-40) Alanine Aminotransferase (ALT) 14 U/L (7-40) Alkaline Phosphatase 78 U/L (46-116) Total Protein 6.6 g/dL (5.7-8.2) Albumin 4.0 g/dL (3.2-4.8) Lactic Acid Level 3.7 mmol/L (0.4-2.0) Urine Color Light-yellow (Yellow) Urine Clarity Clear (Clear) Urine pH 5.0 (5.0-9.0) Urine Specific [place] 1.010 (1.001-1.035) Urine Protein Negative (Negative) Urine Ketones Negative (Negative) Urine Blood Negative /uL (Negative) Urine Nitrite Negative (Negative) Urine Bilirubin Negative (Negative) Urine Urobilinogen Normal mg/dL (Negative) Urine Leukocyte Esterase Negative /uL (Negative) Urine RBC <1 /hpf (0 - 4) Urine Microscopic WBC < 1 /HPF (0-5) Urine Squamous Epithelial Cells Few /hpf (<5) Urine Bacteria Few /hpf (None Seen) Urine Glucose 1+ mg/dL (Normal) Test 07/26/25 11:21 07/26/25 10:12 Troponin I High Sensitivity 14 ng/L (</=34) POC Glucose 196 mg/dl (70-106) Other Laboratory Tests 07/28/25 04:55 Brief Hx & Hospital Course: see dictated note Condition at Discharge: Fair Final Diagnosis/Problems List copd Discharge Disposition: Home Discharge Instruct/Medications Diet: Cardiac 2g Na,low cholest Activity: No Restrictions, As Tolerated Follow Up/Referral: fu with wall Medications: script to pharmacy resume home meds Scheduled Azithromycin (Azithromycin), 1 TAB PO DAILY Empagliflozin (Jardiance), 10 MG PO DAILY Metformin Hydrochloride (Metformin Hcl Er), 1 TAB PO DAILY Prednisone (Prednisone), 20 MG PO DAILY Tiotropium Hilton Monohydrate (Spiriva Respimat), 2 PUFF INH DAILY, (Reported) Miscellaneous Medications Prednisone (Prednisone), TAB PO, (Reported) Discharge Statement: "Patient was advised to return to the ER or call 911 if any headaches, dizziness, shortness of breath, chest pain, abdominal pain, bleeding, fevers, or worsening of medical condition. Patient was counseled about treatment plan, medications, possible side effects, patientverbalized understanding. All questions were answered to the best of my ability. This discharge took greater then 30 minutes in planning, reviewing documentation, counseling the patient, and discussing with other team members." ASSESSMENT ASSESSMENT Assessment copd Date of Service: Jul 28, 2025 Billing Provider: MICHEL MOROCHO MD Common Visit Codes: [id number] DISCH DAY >30min MICHEL MOROCHO MD Jul 28, 2025 11:41
[2025-07-28] MEDS ORDERED: PRED20TA2 PO ×2 (11:44→12:34)
[2025-07-28] MEDS ORDERED: AZIT500T66 PO (11:44)
--- NOTE | 2025-07-28 12:01 | DVHDS ---
DATE OF DISCHARGE: 07/28/2025 HISTORY OF PRESENT ILLNESS: The patient is a 65-year-old lady who is admitted with history of increasing shortness of breath and has history of COPD and chronic respiratory failure. HOSPITAL COURSE: The patient had a chest x-ray that showed evidence of prominent pulmonary vasculature. The patient was placed on antibiotics along with bronchodilators and steroids. Her lactic acid was elevated. The patient currently is doing well, however, and wishes to go home. She will be discharged home to be on Zithromax 500 mg daily for 3 days and prednisone 20 mg daily for 7 days. She will follow up with her primary in 1 week. FINAL DIAGNOSES: * [id number] respiratory failure. * COPD with exacerbation. * Questionable pneumonia with sepsis, Gram-positive, Gram-negative. * Sarcoidosis. Time spent in discharge planning and review of plan with the patient and nursing was 38 minutes. MD ELA Dugan/ERYN TID: [id number] RECEIPT: [id number]
[2025-07-28] MEDS ORDERED: AZIT500T PO (12:34)
== END 2025-07-28 15:49 | disposition home or self-care (01) | DRG 871 ==
LOC: EDBD 08:10 → ER 08:10 → OVERFLOW 14:05 → TELE-WESTW 07-27 04:04 → WEST WING 07-27 16:05
PROVIDERS: ADMIT Internal Medicine; ATTEND Internal Medicine
PROC: 5A09357 Assistance with Respiratory Ventilation, Less than 24 Consecutive Hours, Continuous Positive Airway Pressure (ICD-10-PCS; principal; 2025-07-26)
DX: A41.9 Sepsis, unspecified organism (principal); J15.69 Pneumonia due to other Gram-negative bacteria; J96.21 Acute and chronic respiratory failure with hypoxia; J15.9 Unspecified bacterial pneumonia; E87.20 Acidosis, unspecified; J44.1 Chronic obstructive pulmonary disease with (acute) exacerbation; D86.9 Sarcoidosis, unspecified; J98.4 Other disorders of lung; Z87.891 Personal history of nicotine dependence; Z90.710 Acquired absence of both cervix and uterus; Z88.0 Allergy status to penicillin; Z90.49 Acquired absence of other specified parts of digestive tract
CPT/HCPCS: 36415; 71045; 80048; 80053; 81001; 82962; 83605; 83735; 84484; 85025; 87040; 93005; 94640; 94660; 99291; 99292; G0378